=== PATIENT | female | born 1970 | race Caucasian/White ===

== ENCOUNTER 2017-04-03 04:53 | Inpatient (IN) | payer BC ==
--- NOTE | ~2017-04-03 | HP ---
History And Physical [place] [id number] [facility] [place]. [address] NAME: BLU RAMIREZ : 70 STATUS : DIS IN PAT#: [id number] AGE: 47 ADM/REG DATE : 04/03/17 MR#: [id number] REPORT SERV DATE: 05/16/17 DICTATED BY: LALY ZEPEDA JR. DATE: 04/03/17 REPORT STATUS : Draft TRANSCRIBED BY: MERI DATE: 04/03/17 DATE OF ADMISSION: 04/03/2017 REPORT TITLE: Cardiac Consultation REFERRING PHYSICIANS: 1. Papa Adorno M.D. 2. Yessy Jack M.D. BLOCK OPERATOR: None. HISTORY OF PRESENT ILLNESS: 47-year-old, obese, white female, diabetic with history of hypertension, end-stage renal disease, dialysis, old stroke. Yesterday, she had an AV fistula placed in her right upper extremity for subsequent dialysis. She went home and at approximately 2200 hours last night, had anterior chest pain with shortness of breath and pulmonary congestive changes. She was taken back to the emergency room and dialyzed on the way to the [facility]. She has had no chest pain today and is currently not having any discomfort. Her breathing seems to be improved. EKG shows loss of R-wave but no acute ST elevation. IVCD is prominent as well. Initial troponin already elevated at 5.38. BNP elevated at 697. Blood sugar 812. Potassium 4.4, BUN and creatinine 82 and 7.97, respectively. SOCIAL HISTORY: Supportive family. No current tobacco. No illicit drugs. FAMILY HISTORY: Positive for atherosclerotic cardiovascular disease. PAST MEDICAL HISTORY: Apparently, diastolic dysfunction with ejection fraction ? 40% in the past. 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 History of CVA. Denies history of heart attack. PHYSICAL EXAMINATION: VITAL SIGNS: Blood pressure 156/85, pulse is 93 and regular, respirations 18, and afebrile. HEENT: No xanthelasma. NECK: No JVD at 30 degrees, no thyromegaly, no carotid bruit. LUNGS: Clear to auscultation and percussion. COR: No thrills, heaves, normal S1, S2. No gallop. No rub. No murmur. ABD: Soft, nontender, no hepatosplenomegaly, no mass. EXT: Without edema or pulse deficit. MS: Back without spine or costovertebral angle tenderness. NEURO: Symmetric findings. DISCUSSION: Acute non-ST elevation myocardial infarction with IVCD, loss of R-wave, but no acute ST elevation on 12-lead EKG today. However, the patient had prolonged chest pain last night. None today. Troponin is already 5.38. Uncontrolled diabetes. Blood sugar 812. History And Physical [address] [address] NAME: BLU RAMIREZ ANN : 70 STATUS : DIS IN PAT#: [id number] AGE: 47 ADM/REG DATE : 04/03/17 MR#: [id number] REPORT SERV DATE: 05/16/17 DICTATED BY: LALY ZEPEDA JR. DATE: 04/03/17 REPORT STATUS : Draft TRANSCRIBED BY: MERI DATE: 04/03/17 BUN and creatinine 82 and 8.0, respectively. Potassium 6.8. Suggestions agree with current medications with the addition of intravenous heparin drip. Check portable echocardiogram and obtain serial cardiac enzymes and EKGs. 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 Otherwise would treat her medically including stabilization of the other medical problems. We will defer coronary angiography till her concurrent problems are optimized. Thank you for this consultation. RAF/MERI Laly Zepeda Jr., M.D. / [id number] CC: Lennox Castellanos M.D.
--- NOTE | ~2017-04-03 | OP ---
Record Of Operation [facility] [place]. [address] NAME: BLU DALE : 70 STATUS : DIS IN PAT#: [id number] AGE: 47 ADM/REG DATE : 04/03/17 MR#: [id number] REPORT SERV DATE: 06/07/17 DICTATED BY: DEV LEON DATE: 06/06/17 REPORT STATUS : Draft TRANSCRIBED BY: MODL DATE: 06/06/17 DATE OF PROCEDURE: 04/18/2017 SURGEON: Dev Leon MD MOBILE NURSE: Jammie Tabares. ANESTHESIOLOGIST: Ben Alcantara MD. PREOPERATIVE DIAGNOSES: 1. Eoj-DG-zzwfylq elevation myocardial infarction. 2. Three-vessel coronary artery disease. 3. End-stage renal disease. 4. Hypertension. 5. Hyperlipidemia. 6. Diabetes mellitus. 7. Morbid obesity. POSTOPERATIVE DIAGNOSES: 1. Sso-RY-fbcmqch elevation myocardial infarction. 2. Three-vessel coronary artery disease. 3. End-stage renal disease. 4. Hypertension. 5. Hyperlipidemia. 6. Diabetes mellitus. 7. Morbid obesity. OPERATION/PROCEDURE PERFORMED: 1. Median sternotomy. 2. Extracorporeal circulation. 3. Urgent coronary artery bypass grafting x5, KEAGAN to left anterior descending, reverse greater saphenous vein graft to D1, FLANNERY to obtuse marginal #1, reverse greater saphenous vein graft sequence to the posterior descending artery and posterior lateral branch. 4. LO. 5. Endoscopic vein harvest of bilateral leg. 6. Rigid external fixation of the sternum using Biomet SternaLock Damián. 7. Prevena dressing placement. TUBES AND DRAINS: A 24-Botswanan Tristan to left pleural spaces and a 32-Botswanan anterior mediastinal chest tube. Atrial and ventricular wires. POSTOPERATIVE CONDITION: Stable to CVICU. CROSS-CLAMP TIME: 95 minutes. Record Of Operation [facility] [address] [place]. [address] NAME: BLU DALE : 70 STATUS : DIS IN PAT#: [id number] AGE: 47 ADM/REG DATE : 04/03/17 MR#: [id number] REPORT SERV DATE: 06/07/17 DICTATED BY: DEV LEON DATE: 06/06/17 REPORT STATUS : Draft TRANSCRIBED BY: MODL DATE: 06/06/17 TOTAL CARDIOPULMONARY BYPASS TIME: 210. TRANSESOPHAGEAL ECHO: LVH. No AI, no MR, with mitral annular calcification. Post- procedure, there was preserved wall motion. INTRAOPERATIVE FINDINGS: The patient is not a redo candidate. Left vein was not usable. The right vein was small and thin, 3-4 mm. The KEAGAN was most likely felt to reach the LAD; however upon filling, appeared to have too much tension and was attached and used as a free graft off the degroot of the D2 graft. The patient had a very short sternum with short IMAs. Both IMAs were adequate size, 2 to 3 mm in size; however, they were extremely fragile. There were initially no anastomotic leaks from the WENDY. The patient had a small amount of thickening compared down to the right coronary, in the right graft and had the blood pressure increased per air. Both IMAs had significant leaks requiring recross clamp approximately 15 minutes in order to see them, to be able to manage them. DETAILS OF STERNAL PLATING: Two sternal X plates were placed on the body of the sternum with eight 12 mm screws and one 100-degree sternal plate was placed in the body of the manubrium with four 12 mm screws. CARDIOPULMONARY BYPASS GRAFTS: 1. Graft 1: Free KEAGAN to the LAD. This was 1.3 mm target. This graft was brought up the degroot of the saphenous vein graft to the 2nd diagonal. 2. Graft 2: Reverse greater saphenous vein graft to D2 is a 1.75 mm target. 3. Graft 3: FLANNERY to obtuse marginal #1, is 1.5 mm target. 4. Grafts 4 and 5: Reversed greater saphenous vein graft sequenced to the posterior descending artery and the posterolateral branch. These were both 1.75 mm targets. INDICATIONS FOR PROCEDURE: Ms. Dale is a 47-year-old female with end-stage renal disease, morbid obesity, diabetes, hypertension, hyperlipidemia, who came in with chest pain, was diagnosed with NSTEMI, underwent coronary revascularization which revealed significant three vessel disease. Risks, benefits, alternatives were discussed with the patient including but not limited to, bleeding, infection, stroke, , heart attack, need for future operations. All questions were answered. Her STS risk score was calculated and discussed with the patient. Mortality of less than 5%, total morbidity-mortality less than 20%. DETAILS OF PROCEDURE: The patient was brought into the operating room, placed supine on the operating room table. After satisfactory induction of general endotracheal anesthesia, she was prepped and draped in usual sterile fashion. Working simultaneously, endoscopic vein harvest was performed while bilateral WENDY harvest was performed and median sternotomy was performed. Sternal retractor was placed. Pleural reflection was taken down bilaterally. WENDY retractor was placed on the left. The internal mammary artery was harvested in a pedicle fashion. WENDY retractor was removed. It was placed to the right. The right internal mammary artery was harvested in a pedicle fashion. Systemic heparinization was achieved. The right graft was brought up, was detached from its inferior portion as was the left. Both were infiltrated with papaverine and placed in the upper chest. Sternal retractor was placed. Thymic tissue was opened in the midline. Pericardial well was Record Of Operation [address] [address] NAME: BLU DALE : 70 STATUS : DIS IN PAT#: [id number] AGE: 47 ADM/REG DATE : 04/03/17 MR#: [id number] REPORT SERV DATE: 06/07/17 DICTATED BY: DEV LEON DATE: 06/06/17 REPORT STATUS : Draft TRANSCRIBED BY: MERI DATE: 06/06/17 created. Ascending aortic cannulation was achieved. Dual-stage venous cannula was achieved. Antegrade cardioplegia tack was placed. Cardiopulmonary bypass was initiated after documentation of an adequate ACT. The targets were inspected. Both the appropriate bypass cross-clamp was brought up and the heart was arrested with cold antegrade cardioplegia. The bypass grafts were then performed as mentioned in the findings. The reverse greater saphenous vein graft was anastomosed to the PDA in a vgvc-am-qcfi fashion and PLV in an end-to-side fashion. It was then attached to the aorta after enlarging the aortotomy with a 4.5 mm punch. The left internal mammary artery was brought down through a wide V in the pericardium and anastomosed to obtuse marginal #1, has 1.5 mm target. Pedicles were attached to the heart in two places. There was excellent flow in the artery both pre and post bypass and in the graft itself. The bulldog was reapplied and reverse greater saphenous vein graft was anastomosed to D2 and then anastomosed to the aorta after enlarging the aortotomy with a 4.5 mm punch. Vein graft markers were placed on both of these. The KEAGAN was initially brought across the mediastinum and anastomosed to the left anterior descending. This was a very small target 1.3 mm. It was felt to be appropriate in length. De-airing maneuvers were performed. The cross-clamp was removed . Once the cross-clamp had been removed and the heart started beating, the internal mammary artery on the right was under significant tension. The decision was made to detach this and place it on the degroot of the D2 graft. This was done. The clip reported to left to the proximal portion of the KEAGAN. It was transected. It was cut to length, spatulated, and brought off the degroot of the D2 graft. The degroot was isolated between small bulldogs. Venotomy was performed and running continuous anastomosis was performed using 7-0 Prolene. The bulldogs were removed and there was excellent flow in the graft. The patient had initially come out sinus rhythm and then appeared to have some ST-segment changes. It was felt that had air down the right coronary. Blood pressure was raised and patient was found to have significant bleeding from both IMAs. Decision was made to recross the clamp. Cross-clamp was reapplied. The bleeding from the both IMAs was managed with simple interrupted 8-0 sutures. Cross-clamp was then removed. The patient again went to spontaneously in sinus rhythm, was able to be weaned from cardiopulmonary bypass. Protamine was administered. She was decannulated. There was excellent Doppler signals in both pre and post protamine. The pericardium was loosely reapproximated over the right ventricle and the ascending aorta. A 32-Botswanan chest tube was placed under the sternum. The sternum was reapproximated using stainless steel sternal wires. Clavipectoral flaps were raised after completion of the sternal closure with wires and sternal plates were placed to provide rigid external fixation as mentioned in the findings. The clavipectoral fascia was reapproximated using running #1 StrataFix. Subcutaneous tissues closed using running #1 StrataFix and the skin closed using 2-0 Quill. Prevena dressing was placed. She was transferred to CVICU in critical, stable condition. Liseth/EMRI Dev Leon MD / [id number] Record Of Operation [address] [address] NAME: BLU DALE : 70 STATUS : DIS IN [facility]#: [id number] AGE: 47 ADM/REG DATE : 04/03/17 MR#: [id number] REPORT SERV DATE: 06/07/17 DICTATED BY: DEV LEON PENN DATE: 06/06/17 REPORT STATUS : Draft TRANSCRIBED BY: MERI DATE: 06/06/17 CC: Lennox Mario M.D.
--- NOTE | ~2017-04-03 | DS ---
Discharge Summary [place] [id number] [place]. [address] NAME: BLU RAMIREZ ANN : 70 STATUS : DIS IN PAT#: [id number] AGE: 47 ADM/REG DATE : 04/03/17 MR#: [id number] REPORT SERV DATE: 05/17/17 DICTATED BY: DEV LEON DATE: 05/16/17 REPORT STATUS : Draft TRANSCRIBED BY: MERI DATE: 05/16/17 Data Collection from hospitalization DISCHARGE DIAGNOSES: 1. Kzj-NM-vissmoyln myocardial infarction. 2. Coronary artery disease. 3. End-stage renal disease, on hemodialysis. 4. Hypertension. 5. Depression and failure to thrive. 6. Diabetes mellitus type 2, insulin dependent. 7. Neuropathy. 8. Acute cerebrovascular accident with encephalopathy. 9. Malnutrition. 10.Generalized anxiety disorder with panic attacks. 11.Multiple sclerosis in the past. Remote therapy stopped in 2014. 12.Hyperkalemia. 13.Diastolic dysfunction. CONSULTATIONS: Dr. Papa Villegas, Dr. Neil Zepeda, Dr. Filemon Stevens, Dr. Saadia Shipley, Dr. Lico Phillips, Dr. Debbie Peterson. PROCEDURES PERFORMED: 1. Cardiac catheterization, 04/04/2017. 2. Echocardiogram, 04/04/2017. 3. Median sternotomy, extracorporeal circulation, urgent CABG x5, transesophageal echocardiogram, endoscopic vein harvest from both legs, ( ) external fixation of the sternum using ( ) SternaLock, Prevena dressing, 04/08/2017. 4. Electroencephalogram, 04/10/2017. 5. Carotid ultrasound. 6. Bilateral lower extremity vein mapping. PATHOLOGY: ( ). MEDICATIONS: Vitamin C 1000 mg twice daily, Ecotrin 325 mg daily, Lipitor 80 mg at bedtime, amiodarone HCl 200 mg twice daily, Coreg 25 mg twice daily, Pepcid 20 mg at bedtime, Neurontin 600 mg twice daily, NovoLog insulin sliding scale as directed, Levemir 15 units at bedtime, Keppra 500 mg twice daily, Senokot two tablets twice daily, Renvela 2400 mg before meals, thiamine 100 mg daily, Effexor XR 150 mg daily, Orazinc 220 mg daily, DuoNeb 3 mL every four hours as needed, Xanax 0.5 mg twice daily as needed, Percocet 5/325 one 3 times daily as needed. CONDITION AT DISCHARGE: Upon discharge, she did appear to be doing well and had no complaints. DISPOSITION: She was discharged home to continue a 2000 calorie ADA diet with activity as discussed. She was to follow up with Katharine Islas on 04/24/2017, follow up with myself on 05/14/2017, follow up with Dr. Neil Zepeda on 06/26/2017, follow up with cardiac rehab on 05/30/2017. Continue with outpatient dialysis as scheduled. Home healthcare was in place Discharge Summary [address] [place]. [address] NAME: BLU RAMIREZ ANN : 70 STATUS : DIS IN PAT#: [id number] AGE: 47 ADM/REG DATE : 04/03/17 MR#: [id number] REPORT SERV DATE: 05/17/17 DICTATED BY: DEV LEON DATE: 05/16/17 REPORT STATUS : Draft TRANSCRIBED BY: MERI DATE: 05/16/17 upon discharge. HOSPITAL COURSE: This 47-year-old obese female was diabetic with a history of hypertension, end-stage renal disease, dialysis as well as an old stroke. On 04/02/2017, she had an AV fistula placed in her right upper extremity for subsequent dialysis. She went home and at approximately 2200 hours had an anterior chest pain with shortness of breath and pulmonary congestion changes. She was taken back to the emergency room and dialyzed on the way to [facility]. She had no chest pain following this and had no discomfort noted. Her breathing did seem to be improved. She was admitted for further evaluation and treatment. Upon admission to the hospital, she had been placed on an n.p.o. diet. She was begun on BiPAP. She had been seen on the day of admission by Dr. Papa Adorno for Nephrology evaluation. He had noted the patient was hyperkalemic with a potassium of 6.5 as well as low sodium. However, her blood sugar was noted to be at 800. It was felt that this would correct with insulin and glucose correction. She was also to undergo dialysis. She was on a Saturday, Saturday, Saturday dialysis schedule, however not been getting her full treatment and was felt to be volume overloaded as her main complaint to begin with. She had also been seen on the day of admission by Dr. Neil Zepeda and he had recommended she be placed on IV heparin as well as receive aspirin, beta-johnnie, and nitroglycerin. He agreed with optimal dialysis and stabilization medically and she was to undergo an elective catheterization on this admit. Following the day of admission, she had no further chest pain noted. Her troponin had been at 5.4 and then stephane to 13.5, and then on 04/04/2017, it was back down to 7.4. Potassium was at 4.3. She did undergo an echocardiogram. She was continued on supportive care. She had also undergone a cardiac catheterization. She tolerated this well and was transferred to the recovery room. Secondary to the findings of the catheterization, she was then seen by Ben Ross and he discussed the risks and benefits of surgery with the patient and her , as she was in need of a 3-vessel bypass. She was agreeable to proceed. She did continue with hemodialysis during her hospitalization. On 04/05/2017, she did appear to be doing well and was not feeling anxious and tearful. She had no complaints of chest pain or shortness of breath, and had no new issues or events noted. She did undergo a carotid ultrasound as well as bilateral vein mapping. She had tolerated both procedures well. On 04/06/2017, she was in sinus rhythm and had no complaints of chest pain or shortness of breath. She continued to do well and was awaiting surgery. She did remain in stable condition throughout the next few days and had continued to do well. She was then taken to the operating room on 04/08/2017, where she did undergo the above bypass procedure. She tolerated this well and was transferred to the recovery room. On postop day #1, she was awake and alert, was appropriately responsive. She had been extubated and did appear to be doing well postoperatively. She was continued on supportive care. On postop day #2, she was afebrile and her vital signs had remained stable. She was however noted to have an altered mental status. Reglan was discontinued, and sedation was being held secondary to her altered mental status. She was noted to have had a prior CVA. She was still blinking to threat. She was awake and her eyes were open and she was following movement about the room. She had been seen by Dr. Peterson for Neurology evaluation and an electroencephalogram was recommended. On 04/10/2017, she did undergo the above electroencephalogram. She was noted to have been minimally responsive. She was afebrile and her vital signs were stable. She had also been seen by Dr. Filemon Stevens and he had recommended that she continue with BiPAP and close monitoring secondary to her mental status. She had been placed on Keppra at 1000 mg IV every 12 hours by Neurology. On Discharge Summary [place] [address] [place]. [address] NAME: BLU RAMIREZ ANN : 70 STATUS : DIS IN PAT#: [id number] AGE: 47 ADM/REG DATE : 04/03/17 MR#: [id number] REPORT SERV DATE: 05/17/17 DICTATED BY: DEV LEON DATE: 05/16/17 REPORT STATUS : Draft TRANSCRIBED BY: MERI DATE: 05/16/17 04/11/2017, the patient was awake and would open her eyes and moan, however was aphasic. She did undergo an MRI. She was continued on supportive care. Her WBCs were noted to be at 34 K. On 04/12/2017, she was on nasal cannula oxygen at 15 L. Her chest x-ray had revealed mild left base atelectasis and effusion and right upper lobe atelectasis. She was resumed on her home antihypertensive of carvedilol and it was felt that she may need additional medication if she was not improved after dialysis. She had also been resumed on IV insulin for hyperglycemia. She was continued on supportive care. She was felt to have an acute small left ( ) CVA. Her blood cultures were done and were noted to have been negative. On 04/13/2017, she did remain in stable condition and had no new complaints noted. She had been continued on her hemodialysis. Her WBCs were noted to be decreasing. She was evaluated by Physical Therapy. On 04/14/2017, she was afebrile and her vital signs were stable. Her labs were being observed and she had been continued on supportive care. She did remain in stable condition and had continued to do well and discharge planning was begun. She did remain in stable condition throughout the next few days and was then discharged on 04/17/2017 with the above instructions. Information collected by: Bran [email or web address]. I submit the above information as my discharge summary. RW/MODL Dev Leon MD / [id number] CC: Lennox Mario M.D. Joseph Watlington, M.D. James Hoback Jr., M.D. EMILY ELSWICK, PA-C
--- NOTE | ~2017-04-03 | CN ---
Consultation Report [facility] [address] [place]. [address] NAME: BLU RAMIREZ : 70 STATUS : DEP [facility]#: [id number] AGE: 47 ADM/REG DATE : 04/03/17 MR#: [id number] REPORT SERV DATE: 04/04/17 DICTATED BY: PAPA LATHAM DATE: 04/03/17 REPORT STATUS : Draft TRANSCRIBED BY: MODL DATE: 04/03/17 NEPHROLOGY CONSULTATION DATE OF CONSULTATION: HISTORY OF PRESENT ILLNESS: Ms. Ramirez is a 47-year-old white female with end-stage renal disease, on Saturday, Saturday and Saturday at [facility], who presented to the emergency room today with complaints of shortness of breath and found to have hyperglycemia with blood sugar over 800, positive troponin of 5.3, and hyperkalemia with a potassium of 6.8. She yesterday came to the hospital and had an AV fistula created in the right upper arm by Dr. Castro and was discharged home. On the way home, stopped and got some [employer] chicken, but was offered normal regimen because she was n.p.o. most of the day for her surgery. She has not been staying for a full treatment at the clinics, and she has significant steal syndrome on the left arm with neuropathic pain following an AV fistula creation on her left forearm in the past. She has had end-stage renal disease now, dialyzing through a right IJ PermCath with attempt at a left forearm AV fistula with neuropathic pain developed and had to be ligated, now maturing right brachiocephalic AV fistula placed by Dr. Castro yesterday here at [facility]. She also suffers from hypertension, diabetes mellitus type 2, chronic anemia, obesity, diastolic dysfunction with ejection fraction of 40%, previous NE, previous CVA with heavy atherosclerotic cardiovascular disease burden, depression and was treated for multiple sclerosis through 2015 and no treatment since then. SOCIAL HISTORY: No tobacco. No drugs. No alcohol. She is disabled now, and lives with her . FAMILY HISTORY: Positive for heart disease, lung cancer, hypertension, and diabetes mellitus. REVIEW OF SYSTEMS: Dialyzed Saturday, but only for partial treatment as she was complaining of left hand pain despite being on narcotics. Came yesterday for her AV fistula creation by Dr. Castro. On her way home, stopped and had some [employer] chicken, but says she did not have high blood sugar at that time. Blood sugar was in the 100s after surgery. She became quite short of breath last night at home and developed some chest tightness over her entire chest wall, after which it radiated to both arms. When it was not any better and she became short of breath, was brought to the emergency room. The pain is described as sharp and constant, associated with shortness of breath and no diaphoresis. No fever or chills, no dysuria, and no history of upper respiratory infection or other signs of infection. ALLERGIES: STADOL AND CODEINE. HOME MEDICATIONS: Tylenol, Xanax, aspirin, Lipitor, Coreg, Neurontin, Apresoline, NovoLog and Levemir insulins, Percocet, Renvela, Effexor and a diuretic, do not know the name. PHYSICAL EXAMINATION: Consultation Report [address] [place]. [address] NAME: YOANA RAMIREZLillie TUBBS : 70 STATUS : DEP PAT#: [id number] AGE: 47 ADM/REG DATE : 04/03/17 MR#: [id number] REPORT SERV DATE: 04/04/17 DICTATED BY: PAPA LATHAM DATE: 04/03/17 REPORT STATUS : Draft TRANSCRIBED BY: MERI DATE: 04/03/17 VITAL SIGNS: Blood pressure is 123/68, heart rate of 87, respirations 18, temperature afebrile. GENERAL: Seen on hemodialysis via right IJ PermCath. She arouses easily from sleep. On BiPAP initially, was taken off BiPAP and did well on O2 by nasal cannula. Right IJ PermCath functioning well. She has a right upper arm brachiocephalic AV fistula with recent sutures with good bruit and thrill. Left arm does not have an AV fistula anymore. Her blood pressure cuff is in her left arm. LUNGS: Show decreased breath sounds bilaterally. CARDIOVASCULAR: Without murmur, gallops, or rubs. ABDOMEN: Soft and nontender. Bowel sounds are present. EXTREMITIES: 2+ edema bilaterally in lower extremities. NEUROLOGIC: Nonfocal neurological exam, but did not ambulate the patient. The patient was a bit sleepy, hard to understand and very poor historian. Her filled in the details. LABORATORY DATA: Shows a blood gas with pH of 7.28, pCO2 of 38, pO2 of 61 on room air on arrival to the emergency room with an O2 saturation of 86%. Sodium is 124; potassium 6.8; chloride 90; CO2 of 22 with a BUN of 82; creatinine is 7.97; blood sugar was 812, repeat 400 on dialysis; calcium 8.5; magnesium 2.6. Troponin is 5.38. White count was 16,000; hemoglobin 10; hematocrit 34; platelet count 205,000. INR 1.1. EKG showed some large left atrium, normal sinus rhythm, and ischemic changes diffusely. ASSESSMENT: 1. Acute myocardial infarction, leading to shortness of breath. Cardiology has been consulted to see after dialysis. 2. Hyperkalemia, potassium of 6.5, accompanying low sodium, but her blood sugar was 800. These should correct with insulin and glucose correction. We will recheck after dialysis today. 3. End-stage renal disease, on Saturday, Saturday and Saturday dialysis and not been getting her full treatments, and probably volume overload is her main complaint to begin with. 4. Hypertension. 5. Multiple sclerosis in the past, remote therapy, stopped in 2014. 6. Diastolic dysfunction by echo in the past. 7. See past medical history. PLAN: Cardiology to evaluate, possible cardiac cath. Hemodialysis urgently, being on dialysis as I dictate. Talked with the , he is aware of above, and we will give our hospital pack from the clinic as soon as they are available. VALDO/MERI Papa Latham M.D. Consultation Report [address] [place]. [address] NAME: BLU RAMIREZ ANN : 70 STATUS : DEP [facility]#: [id number] AGE: 47 ADM/REG DATE : 04/03/17 MR#: [id number] REPORT SERV DATE: 04/04/17 DICTATED BY: PAPA LATHAM DATE: 04/03/17 REPORT STATUS : Draft TRANSCRIBED BY: MERI DATE: 04/03/17 / [id number] CC: Lennox Mario
[~2017-04-03 04:53] MED LIST: ACET500CAP PO; AFRIN15 NAS; APRES10B PO; APRES50 PO; ASAB PO; CARDU2 PO; CEFT2 PO; CLARIT10 PO; COREG12 PO; COREG25 PO; DSS PO; DURICEF PO; EFFEX37.5 PO; FLEX PO; HUMULIN R1 ML SC; L80 PO; LEVEMIR SC; LIPITOR40 PO; MIRALAXPKT PO; NEPHRO PO; NEUR100 PO; NEUR300 PO; NEUR600 PO; NORV10 PO; NORV5 PO; NOVOLOG SC; PCET PO; PRIN5 PO; PROTONIX PO; RENVELA800 MG PO; SEVE800T PO; SODBICAR10 PO; ULTRAM50 PO; X5 PO; XANAX XR1 MG PO; XANAX1 MG PO; [UNRECOGNIZED DRUG - OTHER] PO
[2017-04-03 05:21] LABS: HCO3 (ACTUAL BICARBONATE) 17.1 MEQ/L (23-27); HEMOBLOGIN CONTENT 10.8 G/DL (12-16); INSTRUMENT SERIAL # 8087; METHEMOGLOBIN 0.3 % (0-3); O2 CONTENT 12.9 VOL% (18-24); PCO2 (CO2 TENSION) 38 MMHG (35-45); PO2 (O2 TENSION) 61 MMHG (79-93); SAMPLE Arterial; pH 7.28 (7.37-7.43)
[2017-04-03 06:00] LABS: INTERNATIONAL NORMAL RATI 1.1 UNITS (-); PARTIAL THROMBO TIME 28.6 SEC (22.5-37.2)
[2017-04-03 06:01] LABS: BASOPHILS 0.2 %; BASOPHILS ABSOLUTE 0.03 10/3/uL (0.0-0.16); EOSINOPHILS 0 %; ER CBC TAT 0 Hrs 13 Mins; HEMATOCRIT 34.7 % (36.0-48.0); HEMOGLOBIN 10.9 g/dL (12.0-16.0); IMMATURE GRANULOCYTES 0.3 %; IMMATURE GRANULOCYTES ABSOLUTE 0.05 10/3/uL (0.0-0.11); LYMPHOCYTES 10.1 %; LYMPHOCYTES ABSOLUTE 1.62 10/3/uL (0.67-4.30); MEAN CORPUS HGB CONC 31.4 g/dL (32.0-36.0); MEAN CORPUSCULAR HEMOGLOB 31.2 pg (26.0-34.0); MEAN PLATELET VOLUME 11.7 fL (9.2-13.0); MONOCYTES 2.3 %; MONOCYTES ABSOLUTE 0.37 10/3/uL (0.21-1.20); NEUTROPHILS 87.1 %; NEUTROPHILS ABSOLUTE 13.97 10/3/uL (2.02-8.40); PLATELET COUNT 205 10/3/uL (150-400); RBC DISTRIBUTION WIDTH 15.8 % (12.0-16.0); RED CELL COUNT 3.49 10/6/uL (4.0-5.6)
[2017-04-03 06:02] LABS: MANUAL DIFF NO %; MEAN CORPUSCULAR VOLUME 99.4 fL (80-100)
[2017-04-03 07:06] LABS: BUN (BLOOD UREA NITROGEN) 82 MG/DL (6-23); CALCIUM, SERUM 8.5 MG/DL (8.5-10.4); CHEST PAIN PROFILE TAT 0 Hrs 20 Mins; CHLORIDE, SERUM 90 MMOL/L (96-112); CO2 (CARBON DIOXIDE) 22 MMOL/L (24-34); CREATININE 7.97 MG/DL (0.55-1.02); GFR AFRICAN AMERICAN 6 ML/MIN (>=60); GFR NON AFRICAN AMERICAN 5 ML/MIN (>=60); GLUCOSE, SERUM 812 MG/DL (60-99); POTASSIUM, SERUM 6.8 MMOL/L (3.5-5.3); SODIUM, SERUM 124 MMOL/L (135-148); TROPONIN I 5.38 NG/ML (<0.05)
[2017-04-03] MEDS ORDERED: ASAB PO (07:36)
[2017-04-17] MEDS ORDERED: EFFEXOR XR150 MG PO (14:30)
[2017-04-17] MEDS ORDERED: NORCO1 TA1 PO (14:30)
[2017-04-17] MEDS ORDERED: CORDARONE PO (14:30)
[2017-04-17] MEDS ORDERED: KEPPRA500 PO (14:31)
[2017-04-17] MEDS ORDERED: ASA5GR PO (14:31)
[2017-04-17] MEDS ORDERED: DUONEB INH (14:31)
[2017-04-17] MEDS ORDERED: VITC500 PO (14:32)
[2017-04-17] MEDS ORDERED: PEP20 PO (14:33)
[2017-04-17] MEDS ORDERED: ZINC220C PO (14:34)
[2017-04-17] MEDS ORDERED: B1100 PO (14:34)
[2017-06-03] MEDS ORDERED: SUPER B COMP PO (19:41)
[2017-06-03] MEDS ORDERED: PR25 PO (20:03)
== END 2017-04-17 17:40 | disposition home health service (06) | DRG 233 ==
LOC: ER 04:53 → ADMMEM 07:54
PROVIDERS: Nurse Practitioner Acute Care; Specialist
PROC: 5A1D60Z (ICD-10-PCS; principal; 2017-04-03)
PROC: 02100Z9 Bypass Coronary Artery, One Artery from Left Internal Mammary, Open Approach (ICD-10-PCS; 2017-04-03)
PROC: 5A09357 Assistance with Respiratory Ventilation, Less than 24 Consecutive Hours, Continuous Positive Airway Pressure (ICD-10-PCS; 2017-04-03)
PROC: 5A1D60Z (ICD-10-PCS; 2017-04-03)
PROC: 4A023N7 Measurement of Cardiac Sampling and Pressure, Left Heart, Percutaneous Approach (ICD-10-PCS; 2017-04-04)
PROC: 021209W Bypass Coronary Artery, Three Arteries from Aorta with Autologous Venous Tissue, Open Approach (ICD-10-PCS; 2017-04-04)
PROC: B2111ZZ Fluoroscopy of Multiple Coronary Arteries using Low Osmolar Contrast (ICD-10-PCS; 2017-04-04)
PROC: B2151ZZ Fluoroscopy of Left Heart using Low Osmolar Contrast (ICD-10-PCS; 2017-04-04)
PROC: 02100Z8 Bypass Coronary Artery, One Artery from Right Internal Mammary, Open Approach (ICD-10-PCS; 2017-04-04)
PROC: 06BQ4ZZ Excision of Left Saphenous Vein, Percutaneous Endoscopic Approach (ICD-10-PCS; 2017-04-08)
PROC: 06BP4ZZ Excision of Right Saphenous Vein, Percutaneous Endoscopic Approach (ICD-10-PCS; 2017-04-08)
PROC: 5A1221Z Performance of Cardiac Output, Continuous (ICD-10-PCS; 2017-04-08)
PROC: 031709D Bypass Right Brachial Artery to Upper Arm Vein with Autologous Venous Tissue, Open Approach (ICD-10-PCS; 2017-04-08)
PROC: B246ZZ4 Ultrasonography of Right and Left Heart, Transesophageal (ICD-10-PCS; 2017-04-08)
PROC: 05BD0ZZ Excision of Right Cephalic Vein, Open Approach (ICD-10-PCS; 2017-04-08)
PROC: 30233R1 Transfusion of Nonautologous Platelets into Peripheral Vein, Percutaneous Approach (ICD-10-PCS; 2017-04-08)
PROC: 30233N1 Transfusion of Nonautologous Red Blood Cells into Peripheral Vein, Percutaneous Approach (ICD-10-PCS; 2017-04-08)
DX: I97.191 Other postprocedural cardiac functional disturbances following other surgery (principal); I21.4 Non-ST elevation (NSTEMI) myocardial infarction; I63.9 Cerebral infarction, unspecified; N18.6 End stage renal disease; J96.02 Acute respiratory failure with hypercapnia; J96.01 Acute respiratory failure with hypoxia; G93.40 Encephalopathy, unspecified; J98.11 Atelectasis; I97.820 Postprocedural cerebrovascular infarction following cardiac surgery; I13.2 Hypertensive heart and chronic kidney disease with heart failure and with stage 5 chronic kidney disease, or end stage renal disease; I50.32 Chronic diastolic (congestive) heart failure; E46 Unspecified protein-calorie malnutrition; E87.5 Hyperkalemia; E11.65 Type 2 diabetes mellitus with hyperglycemia; F32.9 Major depressive disorder, single episode, unspecified; D64.9 Anemia, unspecified; I25.2 Old myocardial infarction; Z86.73 Personal history of transient ischemic attack (TIA), and cerebral infarction without residual deficits; Z88.5 Allergy status to narcotic agent; Z88.8 Allergy status to other drugs, medicaments and biological substances; Z79.899 Other long term (current) drug therapy; Z79.82 Long term (current) use of aspirin; Z79.4 Long term (current) use of insulin; E11.22 Type 2 diabetes mellitus with diabetic chronic kidney disease; Z99.2 Dependence on renal dialysis; Z82.49 Family history of ischemic heart disease and other diseases of the circulatory system; Z79.84 Long term (current) use of oral hypoglycemic drugs; I25.10 Atherosclerotic heart disease of native coronary artery without angina pectoris; E11.21 Type 2 diabetes mellitus with diabetic nephropathy; G35 Multiple sclerosis; F41.1 Generalized anxiety disorder; Z95.828 Presence of other vascular implants and grafts
CPT/HCPCS: 31720; 36415; 36600; 36821; 70450; 70551; 71010; 71020; 71250; 71275; 74000; 80048; 80053; 80061; 80069; 80076; 81001; 82140; 82330; 82550; 82553; 82803; 82805; 82947; 82962; 83036; 83540; 83550; 83735; 83880; 84100; 84132; 84295; 84439; 84443; 84481; 84484; 84703; 85014; 85018; 85025; 85347; 85384; 85576; 85610; 85730; 86850; 86900; 86901; 86920; 87040; 87086; 87641; 88305; 93005; 93312; 93320; 93325; 93458; 93880; 94002; 94640; 94660; 94770; 95816; 95819; 96374; 96375; 97112-GO; 97163-GP; 97164-GP; 97166-GO; 97535-GO; 99152; 99291; A9270-GY; C1713; C1769; C1894; C8929; G0257; G0365; J0360; J0690; J0885; J1644; J1953; J2150; J2250; J2370; J2405; J2440; J2550; J2720; J2765; J2930; J3010; J3370; J3411; J3475; J3480; P9016; P9035; P9045; P9047; Q9957; Q9967

== ENCOUNTER 2017-04-19 23:22 | Inpatient (IN) | payer BC ==
--- NOTE | ~2017-04-19 | CN ---
Consultation Report [facility] [address] [place]. [address] NAME: BLU RAMIREZ : 70 STATUS : ADM IN PAT#: [id number] AGE: 47 ADM/REG DATE : 04/20/17 MR#: [id number] REPORT SERV DATE: 04/20/17 DICTATED BY: KELLY STEIN DATE: 04/20/17 REPORT STATUS : Draft TRANSCRIBED BY: MERI DATE: 04/20/17 CARDIOLOGY CONSULT DATE OF CONSULTATION: REASON FOR REFERRAL: Chest pain, elevated troponin, and shortness of breath post recent open heart surgery. HISTORY OF PRESENT ILLNESS: This is a pleasant 47-year-old white female with very complex past medical history, well known to Dr. Zepeda. Reportedly, she had been discharged home three days ago from [facility]. She has worsening dyspnea since discharge at home and inability to walk across the room without shortness of breath. She was not on oxygen at home. She developed also two days substernal chest pressure, moderate in severity. She was admitted to Nephrology Service. She was dialyzed yesterday and today also. She was found to have fluid overload. She has leukocytosis with white blood cell count [id number], with left shift. The patient reported some subjective fever and chills at home, but she is not febrile here. Her BNP is elevated up to 178. Her troponin is elevated to 1.6. Of note, it had been 0.6 at the time of open heart surgery on 04/08/2017. The patient is a poor historian and has very slow speech, but reported back to baseline. Of note, she suffered a CVA which has been confirmed by MRI on 04/11/2017 postoperatively. She reportedly has not had any mobility issue, but has some slow speech. Dr. Phillips was involved in her care recently, and she had severe depression. She denied any lower extremity edema, palpitations, or syncope. She has been started on 4 L of oxygen. Of note, she has some respiratory hypercapnic failure during the hospitalization also. She remains hemodynamically stable. She just returned from hemodialysis. REVIEW OF SYSTEMS: The rest of her review of systems is negative. PAST MEDICAL HISTORY: 1. Coronary artery disease, multivessel with status post urgent five-vessel CABG by Dr. Pugh on 04/08/2017. 2. She has preserved systolic function with EF 55% without any regional wall motion abnormalities on 04/04/2017. 3. Severe depression and anxiety. 4. Status post postoperative CVA confirmed by MRI on 04/11/2017. 5. Hypercapnic respiratory failure with negative CT for pulmonary embolism, 04/09/2017. 6. End-stage renal disease, on hemodialysis for few months. 7. Diabetes mellitus. 8. Poor mobility. 9. Failure to thrive. SOCIAL HISTORY: The patient is . She ambulates without difficulties, but had some Consultation Report [address] [place]. [address] NAME: BLU RAMIREZ ANN : 70 STATUS : ADM IN [facility]#: [id number] AGE: 47 ADM/REG DATE : 04/20/17 MR#: [id number] REPORT SERV DATE: 04/20/17 DICTATED BY: KELLY STEIN DATE: 04/20/17 REPORT STATUS : Draft TRANSCRIBED BY: MERI DATE: 04/20/17 difficulties since she was discharged from the hospital due to the general weakness. Denies smoking, drinking alcohol, or using street drugs. FAMILY HISTORY: Negative for sudden cardiac or premature coronary artery disease in the family. HOME MEDICATIONS: Albuterol, Xanax 0.5 mg p.r.n., amiodarone 200 mg twice a day, vitamin C, aspirin 325 mg once a day, Lipitor 80 mg once a day, Coreg 25 mg twice a day, Pepcid 20 mg once a day, Neurontin 600 mg twice a day, hydrocodone every 4 hours as needed, insulin, Keppra 500 mg twice a day, thiamine, Effexor 150 mg once a day. PHYSICAL EXAMINATION: GENERAL: No acute distress. The patient has slow speech, but answers questions appropriately. VITAL SIGNS: Blood pressure 182/84, heart rate 82 and regular. HEENT: Pupils reactive to light and accommodation. Moist mucosa membrane. NECK: No JVD. Normal carotid upstroke. No carotid bruits. LUNGS: Decreased breath sounds bibasilarly, particularly at the left base. No crackles. COR: Normal S1, S2. No S3 or S4. No significant rub or murmurs. ABDOMEN: Obese, distended, and nontender. EXTREMITIES: Lower extremity, trace edema around the ankles with decreased pedal pulses bilaterally. SKIN: Warm with normal turgor. MS: No kyphosis. NEURO/PSY: Alert and oriented. Nonfocal. DATA: CBC remarkable for hemoglobin 10.5, leukocytosis 17,000 with left shift. BNP 878. Troponin 1.69. Creatinine 4.1, BUN 27. Chest x-ray, left basilar infiltrate. Electrocardiogram revealed normal sinus rhythm, 83 beats per minute. Poor R-wave progression in anterior leads, intraventricular conduction delay. ASSESSMENT AND PLAN: 1. Fluid overload. End-stage renal disease, on hemodialysis. 2. Hypoxic respiratory failure of multifactorial etiology. 3. Leukocytosis with reported history of fevers and chills at home concerning for infection with a left basilar infiltrate. 4. Status post recent CABG. 5. Elevated troponin, likely demand ischemia with continuous chest pain, possible type 2 myocardial infarction. 6. Depression. 7. History of recent cerebrovascular accident. The patient has had several medical problems. She is hemodynamically stable now. We will start her on intravenous heparin. Continue aspirin, Coreg, and amiodarone. She is in sinus rhythm. We will follow cardiac enzymes closely. In case if this continues to go up, she may require coronary arteriogram to reassess coronary anatomy and bypass patency. She had a Consultation Report [address] [address] NAME: BLU RAMIREZ ANN : 70 STATUS : ADM IN [facility]#: [id number] AGE: 47 ADM/REG DATE : 04/20/17 MR#: [id number] REPORT SERV DATE: 04/20/17 DICTATED BY: KELLY STEIN DATE: 04/20/17 REPORT STATUS : Draft TRANSCRIBED BY: MERI DATE: 04/20/17 recent echocardiogram which revealed preserved systolic function without any regional wall motion abnormalities. Leukocytosis is unclear, but may represent infection and we will leave it to the primary service or to hospitalist. We will follow the patient with you. Thank you very much for the consult. WILLI/MERI Kelly Stein M.D. / [id number] CC: Papa Adorno M.D. Jag Baxter M.D.
--- NOTE | ~2017-04-19 | HP ---
History And Physical [address] [place]. [address] NAME: BLU RAMIREZ : 70 STATUS : ADM IN [facility]#: [id number] AGE: 47 ADM/REG DATE : 04/20/17 MR#: [id number] REPORT SERV DATE: 04/20/17 DICTATED BY: PAPA LATHAM DATE: 04/20/17 REPORT STATUS : Draft TRANSCRIBED BY: MODLyudmila DATE: 04/20/17 DATE OF ADMISSION: 04/20/2017 HISTORY OF PRESENT ILLNESS: Ms. Ramirez is a 47-year-old white female, recently in the hospital for coronary artery bypass grafting after myocardial infarction, went home on , 04/17/2017, only to return on 04/19/2017, complaining of some chest pain, which developed after dialysis at [facility]. She went home after dialysis, felt well, but then developed some chest pain of sudden onset, nausea, and vomiting. No diaphoresis. No fever. No diarrhea. Mild shortness of breath which became more progressive and finally brought to the hospital for the volume overload, hypoxia, and what appears to be flash pulmonary edema. Responded well to conservative therapy. Dialyzed this morning and got three more kg off her dry weight. Her dry weight will be adjusted, and with positive troponins, we are reconsulting Cardiology to see again. PAST MEDICAL HISTORY: Atherosclerotic cardiovascular disease, recent coronary bypass grafting on 04/08/[address] Pugh, chronic hypertension, diabetes mellitus type 2, anemia, diastolic dysfunctions, history of CVA in the past, chronic depression, history of multiple sclerosis treated through 2014, but no treatment since then needed. SOCIAL HISTORY: No alcohol, no tobacco, no drugs. . FAMILY HISTORY: Positive for heart disease, lung cancer, hypertension, and diabetes. ALLERGIES: SHE IS ALLERGIC TO REGLAN, CODEINE, AND STADOL. HOME MEDICATIONS: DuoNebs inhaler, Xanax, Cordarone, vitamin C, Rad aspirin, Lipitor, Coreg, Pepcid, Neurontin, [place] 5/325, NovoLog sliding scale along with Levemir 15 units at bedtime, Keppra, Renvela, thiamine, Effexor, and zinc sulfate. PHYSICAL EXAMINATION: VITAL SIGNS: Reveals a blood pressure of 149/92, heart rate 86, saturation 100% on 2 L, respirations 14 to 16, and afebrile. GENERAL: Alert, cooperative, feeling well on dialysis after 3 kg ultrafiltration today. HEENT: Examination unremarkable. LUNGS: Clear. Sternotomy site clean and dry. CARDIOVASCULAR: Without rub. ABDOMEN: Soft, benign. Bowel sounds are present. EXTREMITIES: No edema. NEUROLOGIC: Intact. Flat affect. SKIN: No skin rash. LYMPHATICS: No lymphadenopathy. EXTREMITIES: No joint deformities with good range of motion. LABORATORY DATA: Lab shows sodium 138.4, potassium 3.8, chloride 98, CO2 of 29 with a BUN of 27, creatinine 4.1, blood sugar 241. Calcium 8.2, albumin 2.9, troponin was elevated to 1.69. White count 17,000, hemoglobin 10, hematocrit 32, platelet count 249,000. Beta History And Physical [address] [address] NAME: BLU RAMIREZ : 70 STATUS : ADM IN [facility]#: [id number] AGE: 47 ADM/REG DATE : 04/20/17 MR#: [id number] REPORT SERV DATE: 04/20/17 DICTATED BY: PAPA LATHAM DATE: 04/20/17 REPORT STATUS : Draft TRANSCRIBED BY: MODL DATE: 04/20/17 natriuretic peptide is 878. ASSESSMENT: 1. Flash pulmonary edema. Suspect cardiac with positive troponins, but cannot rule out stress-induced troponin leak, although with recent coronary artery disease, I have asked [facility] to see. 2. Recent coronary artery bypass grafting by Dr. Pugh on 04/08/2017. 3. Diabetes mellitus type 2. 4. End-stage renal disease, on hemodialysis on Saturday, Saturday, and Saturday. Last dialysis at [facility] on 04/19/2017. 5. Hypertension. 6. Obesity. 7. History of multiple sclerosis in the past. PLAN: We will ask Cardiology to see again. Ultrafiltration and hemodialysis have made her much more comfortable. We will adjust her dry weight, and we will follow closely in [facility]. VALDO/MERI Papa Latham M.D. / [id number] CC: Lenonx Lane M.D.
--- NOTE | ~2017-04-19 | DS ---
Discharge Summary [facility] [address] [place]. [address] NAME: BLU RAMIREZ : 70 STATUS : DIS IN PAT#: [id number] AGE: 47 ADM/REG DATE : 04/20/17 MR#: [id number] REPORT SERV DATE: 05/09/17 DICTATED BY: MIKE MORRISON DATE: 05/08/17 REPORT STATUS : Draft TRANSCRIBED BY: MERI DATE: 05/08/17 Data Collection from hospitalization DISCHARGE DIAGNOSES: 1. Left pleural effusion. 2. Acute/chronic diastolic congestive heart failure. 3. End-stage renal disease. 4. Chronic pain. 5. Coronary artery disease status post coronary artery bypass. 6. Chronic nausea and vomiting. 7. Hypertension. 8. Type 2 diabetes mellitus. 9. History of cerebrovascular accident. 10.Chronic depression. 11.History of multiple sclerosis. CONSULTATIONS: Dr. Ben Flowers and Dr. Marley Wolff. PROCEDURES PERFORMED: 1. CT scan of the chest without contrast, 04/22/2017. 2. Ultrasound-guided thoracentesis, 04/23/2017. 3. CT scan of the brain without contrast, 04/24/2017. MEDICATIONS: Rad Aspirin 325 mg every morning, Lipitor 80 mg at bedtime, Cordarone 200 mg twice a day, Coreg 25 mg twice a day, Pepcid 20 mg every morning, Neurontin 600 mg twice a day, Keppra 500 mg twice a day, NovoLog injection insulin as instructed, Prinivil 10 mg at bedtime, Florastor capsules one capsule twice a day, Renvela 2400 mg three times a day before meals, thiamine 100 mg every morning, Effexor XR 150 mg every morning, Orazinc 220 mg every morning, Deltasone as instructed, Levemir 16 units subcutaneously twice a day, Tylenol 650 mg orally or rectally as needed, Xanax 0.5 mg twice a day as needed, glucose tablets three to six tablets as needed, morphine 5-10 mg every six hours as needed, nitroglycerin 0.4 mg sublingually as needed, Zofran one to two tablets every six hours as needed, Catapres 0.1 mg every six hours as needed and as instructed, Proventil 3 mL via inhaler every four hours while awake as needed, DuoNeb 3 mL via inhaler four times a day as instructed, vitamin C 1000 mg twice a day. CONDITION AT DISCHARGE: Stable. DISPOSITION: The patient was discharged to [facility] on a renal diet with activities as instructed. HOSPITAL COURSE: This is a 47-year-old female, who had recently been in the hospital for coronary artery bypass grafting after a myocardial infarction. She went home on 04/17/2017 and returned on 04/19/2017, complaining of some chest pain, which developed after dialysis. She went home after dialysis and felt well, but then developed some chest pain of sudden onset nausea and vomiting. She had no diaphoresis, fever, or diarrhea. She had mild shortness of breath, which became more progressive and she was finally brought to the hospital for the volume overload, hypoxia, and what appeared to be flash pulmonary edema. Discharge Summary [address] [address] NAME: BLU RAMIREZ ANN : 70 STATUS : DIS IN PAT#: [id number] AGE: 47 ADM/REG DATE : 04/20/17 MR#: [id number] REPORT SERV DATE: 05/09/17 DICTATED BY: MIKE MORRISON DATE: 05/08/17 REPORT STATUS : Draft TRANSCRIBED BY: MERI DATE: 05/08/17 She responded well to conservative therapy. White count was 17,000. She was admitted to the hospital at this time for further evaluation and treatment. Upon admission, ultrafiltration and hemodialysis made her much more comfortable. She was felt to have flash pulmonary edema. Her creatinine was 4.1. She was seen by Dr. Marley Wolff regarding chest pain, elevated troponin, and shortness of breath. She had recently had open heart surgery. Her white count was 17,000 with a left shift. Her troponin was elevated at 1.6. It had been 0.6 at the time of her open heart surgery on 04/08/2017. She had suffered a CVA, which was confirmed by an MRI on 04/11/2017 postoperatively. She had been started on 4 L of oxygen. She does have severe depression. She was hemodynamically stable at this time. She was started on intravenous heparin. Aspirin, Coreg, and amiodarone were continued. She was in a sinus rhythm. We will closely follow cardiac enzymes. The following day, her shortness of breath was much better. She had no chest pain. White count was 20.9. On 04/22/2017, she had a flat affect. She was depressed. A CT scan of the chest without contrast had been performed. She was evaluated by Occupational Therapy. The patient had a left pleural effusion. It was felt that she would need to undergo ultrasound-guided thoracentesis. This was performed and 0.5 L fluid was removed. On the , she was seen by Dr. Ben Flowers. Unfortunately, the fluid that was removed in the thoracentesis was not sent for chemistry. It had only 6% segs. 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 She was not a candidate for the usual high-dose nonsteroidal and aspirin because of her renal disease and risk for gastritis and bleeding. She would be given colchicine at a lower dose with steroids. Chemistries would be added to the pleural fluid. Chest x-ray was going to be obtained. Oxygen would be provided as needed to maintain saturations in the 90% to 94% range. She does have significant symptoms of obstructive sleep apnea and with her cardiovascular disease, this would warrant an outpatient sleep evaluation. We were doubtful of an infectious process. However, we agreed with treatment of antibiotics covering community-acquired organisms. Cultures had been sent and were negative. Cardiac medications were continued. Heparin was changed to subcutaneously daily when it was okay to stop the heparin drip. Sliding scale insulin was continued. Levemir was increased. A CT scan of the brain without contrast was performed. She was evaluated by Physical Therapy. On 04/25/2017, the patient was alert. She had no shortness of breath. She had an episode the day previously of being poorly responsive. It was felt there was no need to escalate her care at this time. Narcan had been given. CT scan of the brain had shown no evidence of acute intracranial pathology. Recently noted punctate left frontal white matter acute infarct was not well delineated on this exam. Next day, the patient was feeling better. She had left pleuritic pain. She had good pain control. She was alert and cooperative. Hemodialysis therapy was performed. On the , she had some nausea. Oral prednisone taper was being performed. She had complained of some new right shoulder and back pain. She had some mild shortness of breath. Hemodialysis therapy continued. A long taper of steroids would be performed. She continued to do well. Discharge planning was performed. She still complained of some shoulder pain. On 05/01/2017, she did have some constipation. Nausea and vomiting had improved. She was feeling better. She did have some generalized weakness. Discharge instructions were given. Due to her improved and stable condition, she was discharged to [facility] with the above-stated instructions. Discharge Summary [place] [id number] [place]. [address] NAME: BLU RAMIREZ ANN : 70 STATUS : DIS IN PAT#: [id number] AGE: 47 ADM/REG DATE : 04/20/17 MR#: [id number] REPORT SERV DATE: 05/09/17 DICTATED BY: MIKE MORRISON DATE: 05/08/17 REPORT STATUS : Draft TRANSCRIBED BY: MERI DATE: 05/08/17 Information collected by: Marissa Braun I submit the above information as my discharge summary. TG/MERI Mike Morrison M.D. / [id number] CC: Papa Adorno M.D. Lennox Dias M.D. [facility]
--- NOTE | ~2017-04-19 | CN ---
Consultation Report [facility] [address] [place]. [address] NAME: BLU RAMIREZ : 70 STATUS : ADM IN [facility]#: [id number] AGE: 47 ADM/REG DATE : 04/20/17 MR#: [id number] REPORT SERV DATE: 04/24/17 DICTATED BY: DOROTA FLOWERS IV DATE: 04/24/17 REPORT STATUS : Draft TRANSCRIBED BY: MERI DATE: 04/24/17 PULMONARY CONSULTATION DATE OF CONSULTATION: 04/24/2017 REASON FOR REQUEST: Left pleural effusion and atelectasis/consolidation of the lung. HISTORY OF PRESENT ILLNESS: History was obtained from the records and from the patient. Ms. Ramirez is a 47-year-old female with a history of multivessel coronary artery disease, status post recent CABG; depression/anxiety; cerebrovascular disease; diabetes mellitus; end-stage renal disease, on dialysis; elevated cholesterol, who is admitted with chills, fever, elevated white blood cell count, and left pleural effusion with pleuritis. The patient recently underwent urgent five-vessel coronary artery bypass grafting by Dr. Pugh on 04/08 when she was found to have multivessel coronary artery disease. The patient did relatively well postoperatively, however, postoperative films demonstrated an increasing left pleural effusion. The patient noted onset of left-sided pleuritic chest pain with a fever sensation and temperature to 100 and chills soon after discharge. This got progressively worse with increasing shortness of breath for which she re-presented back to the hospital on the . She was found to have a large left pleural effusion with chest CT scan demonstrating some atelectasis/consolidation of the lung, however, with air bronchograms. She underwent a thoracentesis yesterday removing 500 mL of fluid. Unfortunately, it was not sent for chemistries, however, had only 6% segs. The patient noted a decrease in her shortness of breath, however, persistent chest pain under her left breast radiating through to her back. We are asked to consult concerning this. The patient was not sent home on oxygen, though is currently on oxygen. She is not on bronchodilator medication. There was no trauma to her side. She had no exposure to ill individuals. She denies cough or purulent sputum production or hemoptysis. The patient reportedly snores, though is unaware of apneic episodes. She allows herself 10 hours of sleep every evening. Despite this sleep is nonrestorative, and she complains of sedentary hypersomnolence. PULMONARY HISTORY: Remarkable for no history of childhood asthma, known adult obstructive lung disease, or previous pneumonia. She is a lifelong nonsmoker with no significant secondary smoke exposure. 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 She is up to date on her immunizations. PAST MEDICAL HISTORY: 1. Multivessel coronary artery disease, status post CABG. 2. Depression/anxiety. 3. Cerebrovascular disease. 4. Diabetes mellitus. 5. End-stage renal disease, on dialysis. 6. Elevated cholesterol. Consultation Report [place] [id number] [facility] [place]. [address] NAME: BLU RAMIREZ : 70 STATUS : ADM IN [facility]#: [id number] AGE: 47 ADM/REG DATE : 04/20/17 MR#: [id number] REPORT SERV DATE: 04/24/17 DICTATED BY: DOROTA FLOWERS IV DATE: 04/24/17 REPORT STATUS : Draft TRANSCRIBED BY: MERI DATE: 04/24/17 SURGERIES: 1. Vascular graft placements, two in the left forearm and a third in the right anterior cubital space. 2. Coronary artery bypass grafting. 3. PermCath placement. ALLERGIES: LISTED ARE REGLAN, AND SHE IS INTOLERANT OF CODEINE. CURRENT MEDICATIONS: The patient is on aspirin 325 mg daily, Cordarone 200 mg twice a day, Coreg 25 mg twice a day, Effexor 150 mg daily, Keppra 500 mg twice a day, Levemir 15 units at bedtime, Lipitor 80 mg at bedtime, Neurontin 600 mg twice a day, level 2 insulin sliding scale, Orazinc 220 mg daily, Pepcid 20 mg daily, Renvela 1400 mg with meals, thiamine 100 mg daily, Zosyn 3.375 g b.i.d., and vancomycin per pharmacy. SOCIAL HISTORY: Remarkable for no tobacco use. She has rare social alcohol use and smoked marijuana in her youth. She is , has no biologic children. FAMILY HISTORY: Remarkable for father with coronary artery disease and hypertension. Mother with COPD and lung cancer. REVIEW OF SYSTEMS: 14-systems reviewed. Pertinent positives as noted above. PHYSICAL EXAMINATION: GENERAL: This is a well-developed, middle-aged female, appearing older than her stated age with slightly blunted affect, though in no distress. VITAL SIGNS: Temperature is 98.1, pulse is 83, respiratory rate is 18, saturations are 95% on 2 L, blood pressure 125/60. HEENT: Patient is normocephalic, atraumatic. Extraocular movements are intact. Pupils react to light. Sclerae and conjunctivae normal. She has a nasal cannula in place. She has a Mallampati 3 airway with significant narrowing of the posterior pharyngeal space. NECK: Without any palpable lymphadenopathy or thyromegaly. CHEST: The patient has a well-healed sternotomy incision site. She has hypoventilatory efforts. She has a few basilar crackles on the right. There are decreased breath sounds at the left base with bronchial breath sounds. There is no current wheezes, rubs, or rhonchi. CARDIOVASCULAR: The patient has a minimal rub at the left base. She has regular S1, S2 with no clear murmur or S3. There are 1+ carotid upstrokes. No obvious bruit. Jugular venous pulsations are difficult to elicit. She has decreased peripheral pulses. ABDOMEN: Obese, soft, and nontender. There are hypoactive bowel sounds. There is no palpable hepatosplenomegaly or mass. EXTREMITIES: Demonstrate no cyanosis, clubbing, edema, or palpable cords. [place] site scars are noted. NEUROLOGIC: The patient is able to move all extremities. Strength is 5-/5 and sensations reportedly intact to light touch. Consultation Report [address] [place]. [address] NAME: BLU RAMIREZ ANN : 70 STATUS : ADM IN [facility]#: [id number] AGE: 47 ADM/REG DATE : 04/20/17 MR#: [id number] REPORT SERV DATE: 04/24/17 DICTATED BY: DOROTA FLOWERS IV DATE: 04/24/17 REPORT STATUS : Draft TRANSCRIBED BY: MERI DATE: 04/24/17 LABORATORY DATA: Chest x-ray post thoracentesis has not been obtained. Chest CT scan demonstrated a moderate to large left pleural effusion with compressive atelectasis, though with air bronchograms in the left lung. CBC: Hemoglobin 9.8, hematocrit 30.7, platelet count was 237,000, and white blood cell count 27.4. There is 95 segs, no bands. PTT is 55.8. The cell count from the thoracentesis demonstrated 102,476 red blood cells with 4084 white blood cells with 6% segs and 50% large mononuclear cells with the remaining being lymphocytes. Procalcitonin level was 1.19. Chemistry: Sodium 135, potassium 4.8, chloride 97, bicarbonate 26, BUN 43, creatinine 6.92, blood sugars 227, magnesium is 1.9, phos is 5.7. Troponin is 0.34. BNP is 920. ASSESSMENT AND PLAN: 1. Respiratory. 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 She is not a candidate for the usual high-dose nonsteroidals and aspirin because of her renal disease and risk for gastritis and bleeding. She will be given colchicine 0.6 mg daily at a lower dose with steroids 30 mg daily. We will add chemistries to the pleural fluid. Chest x-ray will be obtained now and tomorrow. Oxygen will be provided as needed to maintain saturations in the 90% to 94% range. The patient has significant symptoms of obstructive sleep apnea and with her cardiovascular disease warrants an outpatient sleep evaluation. 2. Infectious disease. I doubt an infectious process, however, agree with treatment with antibiotics covering community-acquired organisms. Cultures have been sent and are currently negative. We will add Florastor one twice a day. 3. Endocrinologic. We will increase Levemir dose tomorrow to 12 units twice a day, and adjust as needed especially while on the steroids. Continue insulin sliding scale. 4. Neurologic. Pain management with continued use of Neurontin. She will remain on the multivitamins. 5. Cardiovascular. We will continue the cardiac medications. 6. Hematologic. Heparin will be changed to subcu daily when okay to stop the heparin drip. Thank you for consulting us. We will follow the patient with you. NM/MODL Dorota Flowers IV, M.D. / [id number] CC: Lennox Lane M.D.
[~2017-04-19 23:22] MED LIST changes: +ASA5GR PO; +B1100 PO; +CORDARONE PO; +DUONEB INH; +EFFEXOR XR150 MG PO; +KEPPRA500 PO; +NORCO1 TA1 PO; +PEP20 PO; +VITC500 PO; +ZINC220C PO
[2017-04-19 23:58] LABS: BASOPHILS 0.1 %; BASOPHILS ABSOLUTE 0.02 10/3/uL (0.0-0.16); EOSINOPHILS 1.9 %; EOSINOPHILS ABSOLUTE 0.32 10/3/uL (0.0-0.53); ER CBC TAT 0 Hrs 22 Mins; HEMATOCRIT 32.3 % (36.0-48.0); HEMOGLOBIN 10.5 g/dL (12.0-16.0); IMMATURE GRANULOCYTES 1.2 %; IMMATURE GRANULOCYTES ABSOLUTE 0.21 10/3/uL (0.0-0.11); LYMPHOCYTES 8.9 %; LYMPHOCYTES ABSOLUTE 1.51 10/3/uL (0.67-4.30); MEAN CORPUS HGB CONC 32.5 g/dL (32.0-36.0); MEAN CORPUSCULAR HEMOGLOB 31.8 pg (26.0-34.0); MEAN CORPUSCULAR VOLUME 97.9 fL (80-100); MEAN PLATELET VOLUME 11.6 fL (9.2-13.0); MONOCYTES 7.7 %; NEUTROPHILS 80.2 %; NEUTROPHILS ABSOLUTE 13.63 10/3/uL (2.02-8.40); PLATELET COUNT 249 10/3/uL (150-400); RBC DISTRIBUTION WIDTH 14.7 % (12.0-16.0)
[2017-04-20 00:04] LABS: MANUAL DIFF NO %
[2017-04-20 00:07] LABS: PARTIAL THROMBO TIME 33.3 SEC (22.5-37.2)
[2017-04-20 00:12] LABS: A/G RATIO 0.8 (0.7-1.9); ALBUMIN 2.9 G/DL (3.5-5.0); ALKALINE PHOSPHATASE 111 U/L (45-117); BUN (BLOOD UREA NITROGEN) 27 MG/DL (6-23); CALCIUM, SERUM 8.2 MG/DL (8.5-10.4); CHLORIDE, SERUM 98 MMOL/L (96-112); CO2 (CARBON DIOXIDE) 29 MMOL/L (24-34); CREATININE 4.16 MG/DL (0.55-1.02); GFR AFRICAN AMERICAN 14 ML/MIN (>=60); GFR NON AFRICAN AMERICAN 12 ML/MIN (>=60); GLOBULIN 3.8 G/DL (2.5-4.1); GLUCOSE, SERUM 241 MG/DL (60-99); POTASSIUM, SERUM 3.8 MMOL/L (3.5-5.3); SGOT(AST) 10 U/L (5-40); SGPT(ALT) 8 U/L (5-65); SODIUM, SERUM 134 MMOL/L (135-148); TOTAL BILIRUBIN 0.3 MG/DL (0-1.2); TOTAL PROTEIN 6.7 G/DL (6.0-8.5); TROPONIN I 1.69 NG/ML (<0.05)
[2017-04-20] MEDS ORDERED: CORDARONE PO (00:15)
[2017-04-20] MEDS ORDERED: X5 PO (00:15)
[2017-04-20] MEDS ORDERED: DUONEB INH (00:15)
[2017-04-20] MEDS ORDERED: PEP20 PO (00:16)
[2017-04-20] MEDS ORDERED: VITC500 PO (00:16)
[2017-04-20] MEDS ORDERED: NEUR600 PO (00:16)
[2017-04-20] MEDS ORDERED: COREG25 PO (00:16)
[2017-04-20] MEDS ORDERED: LIPITOR80 MG PO (00:16)
[2017-04-20] MEDS ORDERED: ASABAYER PO (00:16)
[2017-04-20] MEDS ORDERED: LEVEMIR SC (00:17)
[2017-04-20] MEDS ORDERED: NOVOLOG SC (00:17)
[2017-04-20] MEDS ORDERED: NORCO1 TA1 PO (00:17)
[2017-04-20] MEDS ORDERED: KEPPRA500 PO (00:18)
[2017-04-20] MEDS ORDERED: ZINC220C PO (00:18)
[2017-04-20] MEDS ORDERED: SEVE800T PO (00:18)
[2017-04-20] MEDS ORDERED: EFFEXOR XR150 MG PO (00:18)
[2017-04-20] MEDS ORDERED: B1100 PO (00:18)
[2017-04-20 00:21] LABS: INTERNATIONAL NORMAL RATI 1.2 UNITS (-)
[2017-04-20 00:24] LABS: PROTIME (NOT ORD) 15.2 SEC (12.0-14.5)
[2017-04-21 02:14] LABS: BASOPHILS 0.3 %; BASOPHILS ABSOLUTE 0.07 10/3/uL (0.0-0.16); EOSINOPHILS 2.1 %; EOSINOPHILS ABSOLUTE 0.43 10/3/uL (0.0-0.53); HEMATOCRIT 37.3 % (36.0-48.0); LYMPHOCYTES ABSOLUTE 2.71 10/3/uL (0.67-4.30); MANUAL DIFF NO %; MEAN CORPUS HGB CONC 32.2 g/dL (32.0-36.0); MEAN CORPUSCULAR HEMOGLOB 31.6 pg (26.0-34.0); MEAN CORPUSCULAR VOLUME 98.2 fL (80-100); MEAN PLATELET VOLUME 11.7 fL (9.2-13.0); MONOCYTES 8.3 %; MONOCYTES ABSOLUTE 1.73 10/3/uL (0.21-1.20); NEUTROPHILS 75.3 %; NEUTROPHILS ABSOLUTE 15.78 10/3/uL (2.02-8.40); PLATELET COUNT 241 10/3/uL (150-400); RBC DISTRIBUTION WIDTH 15.1 % (12.0-16.0); WHITE BLOOD CELLS 20.9 10/3/uL (4.5-10.5)
[2017-04-21 02:23] LABS: ALBUMIN 3.2 G/DL (3.5-5.0); BUN (BLOOD UREA NITROGEN) 29 MG/DL (6-23); CALCIUM, SERUM 8.6 MG/DL (8.5-10.4); CHLORIDE, SERUM 99 MMOL/L (96-112); CO2 (CARBON DIOXIDE) 27 MMOL/L (24-34); GLUCOSE, SERUM 262 MG/DL (60-99); POTASSIUM, SERUM 4.1 MMOL/L (3.5-5.3); SODIUM, SERUM 138 MMOL/L (135-148)
[2017-04-21 02:43] LABS: CREATININE 5.08 MG/DL (0.55-1.02); GFR AFRICAN AMERICAN 11 ML/MIN (>=60); GFR NON AFRICAN AMERICAN 9 ML/MIN (>=60); TROPONIN I 1.22 NG/ML (<0.05)
[2017-04-21 09:51] LABS: PROCALCITONIN 2.07 ng/mL (<0.5)
[2017-04-22 08:25] LABS: BE (BASE EXCESS) 1.8 MEQ/L (0 +/- 2.5); CARBOXYHEMOGLOBIN 1.6 % (0-3); HCO3 (ACTUAL BICARBONATE) 25.7 MEQ/L (23-27); HEMOBLOGIN CONTENT 11.2 G/DL (12-16); INSTRUMENT SERIAL # 8087; METHEMOGLOBIN 0.3 % (0-3); O2 CONTENT 13.5 VOL% (18-24); OPERATOR ID 33449; PCO2 (CO2 TENSION) 38 MMHG (35-45); PO2 (O2 TENSION) 52 MMHG (79-93); SAMPLE Arterial; pH 7.45 (7.37-7.43)
[2017-04-22 13:59] LABS: BASOPHILS 0.4 %; BASOPHILS ABSOLUTE 0.06 10/3/uL (0.0-0.16); EOSINOPHILS 3.1 %; EOSINOPHILS ABSOLUTE 0.49 10/3/uL (0.0-0.53); HEMATOCRIT 32.5 % (36.0-48.0); HEMOGLOBIN 10.4 g/dL (12.0-16.0); IMMATURE GRANULOCYTES 0.5 %; IMMATURE GRANULOCYTES ABSOLUTE 0.08 10/3/uL (0.0-0.11); LYMPHOCYTES 17.3 %; LYMPHOCYTES ABSOLUTE 2.73 10/3/uL (0.67-4.30); MANUAL DIFF NO %; MEAN PLATELET VOLUME 11.6 fL (9.2-13.0); MONOCYTES 3.2 %; MONOCYTES ABSOLUTE 0.51 10/3/uL (0.21-1.20); NEUTROPHILS 75.5 %; NEUTROPHILS ABSOLUTE 11.94 10/3/uL (2.02-8.40); PLATELET COUNT 233 10/3/uL (150-400); RBC DISTRIBUTION WIDTH 15.1 % (12.0-16.0); RED CELL COUNT 3.25 10/6/uL (4.0-5.6); WHITE BLOOD CELLS 15.8 10/3/uL (4.5-10.5)
[2017-04-22 14:08] LABS: CALCIUM, SERUM 8.5 MG/DL (8.5-10.4); CHLORIDE, SERUM 101 MMOL/L (96-112); CO2 (CARBON DIOXIDE) 28 MMOL/L (24-34); CREATININE 5.12 MG/DL (0.55-1.02); GFR AFRICAN AMERICAN 11 ML/MIN (>=60); GFR NON AFRICAN AMERICAN 9 ML/MIN (>=60); PHOSPHORUS, SERUM 3.9 MG/DL (2.5-4.5); POTASSIUM, SERUM 3.5 MMOL/L (3.5-5.3); SODIUM, SERUM 140 MMOL/L (135-148)
[2017-04-22 14:09] LABS: BUN (BLOOD UREA NITROGEN) 34 MG/DL (6-23); GLUCOSE, SERUM 167 MG/DL (60-99)
[2017-04-22 14:38] LABS: PROCALCITONIN 1.67 ng/mL (<0.5)
[2017-04-23 05:23] LABS: INTERNATIONAL NORMAL RATI 1.2 UNITS (-); PROTIME (NOT ORD) 15.3 SEC (12.0-14.5)
[2017-04-23 06:43] LABS: ALBUMIN 2.8 G/DL (3.5-5.0); ALKALINE PHOSPHATASE 120 U/L (45-117); CALCIUM, SERUM 8.2 MG/DL (8.5-10.4); CHLORIDE, SERUM 102 MMOL/L (96-112); CO2 (CARBON DIOXIDE) 25 MMOL/L (24-34); CPK 31 U/L (0-200); CREATININE 5.15 MG/DL (0.55-1.02); GFR AFRICAN AMERICAN 11 ML/MIN (>=60); GFR NON AFRICAN AMERICAN 9 ML/MIN (>=60); PHOSPHORUS, SERUM 4.4 MG/DL (2.5-4.5); SGOT(AST) 11 U/L (5-40); SGPT(ALT) 8 U/L (5-65); SODIUM, SERUM 138 MMOL/L (135-148); TOTAL BILIRUBIN 0.2 MG/DL (0-1.2); TOTAL PROTEIN 6.6 G/DL (6.0-8.5)
[2017-04-23 06:44] LABS: BUN (BLOOD UREA NITROGEN) 30 MG/DL (6-23); CK-MB 2.1 NG/ML; DIRECT BILIRUBIN < 0.1 MG/DL (0.0-0.4); GLUCOSE, SERUM 249 MG/DL (60-99); INDIRECT BILIRUBIN(NOT ORDER) 0.1 MG/DL (0.1-0.9); POTASSIUM, SERUM 4.4 MMOL/L (3.5-5.3)
[2017-04-23 06:45] LABS: TROPONIN I 0.46 NG/ML (<0.05)
[2017-04-23 08:49] LABS: HEMATOCRIT 33.8 % (36.0-48.0); HEMOGLOBIN 10.5 g/dL (12.0-16.0); MEAN CORPUS HGB CONC 31.1 g/dL (32.0-36.0); MEAN CORPUSCULAR HEMOGLOB 31.3 pg (26.0-34.0); MEAN CORPUSCULAR VOLUME 100.6 fL (80-100); MEAN PLATELET VOLUME 11.5 fL (9.2-13.0); NUCLEATED RED BLOOD CELLS 0.2 /100WBC (0-0); PLATELET COUNT 200 10/3/uL (150-400); RBC DISTRIBUTION WIDTH 15.8 % (12.0-16.0); RED CELL COUNT 3.36 10/6/uL (4.0-5.6)
[2017-04-23 08:50] LABS: MANUAL DIFF YES %; WHITE BLOOD CELLS 24.9 10/3/uL (4.5-10.5)
[2017-04-23 09:13] LABS: BAND NEUTROPHILS 10 %; EOSINOPHILS 6 %; EOSINOPHILS ABSOLUTE (CALC) 1.49 10/3/uL (0.0-0.53); LYMPHOCYTES 13 %; LYMPHOCYTES ABSOLUTE (CALC) 3.24 10/3/uL (0.67-4.30); MONOCYTES 2 %; NEUTROPHILS ABSOLUTE (CALC) 19.67 10/3/uL (2.02-8.40); SEGMENTED NEUTROPHIL (0) 69 %; TOTAL NUCLEATED CELLS 100
[2017-04-23 09:14] LABS: MACROCYTES 1+ (5-10/OIF) (0-5/OIF); PLATELET ESTIMATE ADQ (ADEQUATE); POLYCHROMASIA 1+ (2-5/OIF) (0-1/OIF); TOXIC GRANULATION 1+
[2017-04-23 16:06] LABS: BODY FLUID RBC (NOT ORD) 102476 /MM3
[2017-04-23 16:07] LABS: BF TOTAL CELL CT (NOT ORD 4084 /MM3
[2017-04-23 16:20] LABS: BD FL LYMPH (NOT ORD) 37 %; BD FL SOURCE (NOT ORD) LT PLEURAL; BF BASO (NOT OF) 0 %; BF LARGE MONONUCLEAR 57 %; BODY FLUID EOS (NOT ORD) 0 %; BODY FLUID SEG (NOT ORD) 6 %
[2017-04-24 08:15] LABS: HEMATOCRIT 30.7 % (36.0-48.0); HEMOGLOBIN 9.8 g/dL (12.0-16.0); MEAN CORPUS HGB CONC 31.9 g/dL (32.0-36.0); MEAN CORPUSCULAR VOLUME 100.3 fL (80-100); MEAN PLATELET VOLUME 11.3 fL (9.2-13.0); PLATELET COUNT 237 10/3/uL (150-400); RBC DISTRIBUTION WIDTH 15.8 % (12.0-16.0); RED CELL COUNT 3.06 10/6/uL (4.0-5.6)
[2017-04-24 08:16] LABS: WHITE BLOOD CELLS 27.4 10/3/uL (4.5-10.5)
[2017-04-24 08:17] LABS: MANUAL DIFF YES %
[2017-04-24 08:35] LABS: EOSINOPHILS 1 %; EOSINOPHILS ABSOLUTE (CALC) 0.27 10/3/uL (0.0-0.53); LYMPHOCYTES 3 %; LYMPHOCYTES ABSOLUTE (CALC) 0.82 10/3/uL (0.67-4.30); MONOCYTES 1 %; MONOCYTES ABSOLUTE (CALC) 0.27 10/3/uL (0.21-1.20); NEUTROPHILS ABSOLUTE (CALC) 26.03 10/3/uL (2.02-8.40); PLATELET ESTIMATE ADQ (ADEQUATE); SEGMENTED NEUTROPHIL (0) 95 %; TOTAL NUCLEATED CELLS 100
[2017-04-24 08:36] LABS: MACROCYTES 1+ (5-10/OIF) (0-5/OIF)
[2017-04-24 08:44] LABS: ALBUMIN 2.7 G/DL (3.5-5.0); CHLORIDE, SERUM 97 MMOL/L (96-112); CO2 (CARBON DIOXIDE) 26 MMOL/L (24-34); CPK 28 U/L (0-200); GLUCOSE, SERUM 227 MG/DL (60-99); POTASSIUM, SERUM 4.8 MMOL/L (3.5-5.3); SODIUM, SERUM 135 MMOL/L (135-148)
[2017-04-24 08:45] LABS: BUN (BLOOD UREA NITROGEN) 43 MG/DL (6-23); CK-MB 2.3 NG/ML; CREATININE 6.92 MG/DL (0.55-1.02); GFR AFRICAN AMERICAN 7 ML/MIN (>=60); GFR NON AFRICAN AMERICAN 6 ML/MIN (>=60); PHOSPHORUS, SERUM 5.7 MG/DL (2.5-4.5); TROPONIN I 0.34 NG/ML (<0.05)
[2017-04-24 11:46] LABS: PROCALCITONIN 1.19 ng/mL (<0.5)
[2017-04-24 13:09] LABS: GLUCOSE BODY FL (NOT ORD) 189 MG/DL; LDH BODY FLUID (NOT ORD) 249 U/L; PROTEIN BODY FLUID 4.4 G/DL
[2017-04-24 16:01] LABS: BE (BASE EXCESS) -2.4 MEQ/L (0 +/- 2.5); CARBOXYHEMOGLOBIN 1.4 % (0-3); DEVICE NC; HCO3 (ACTUAL BICARBONATE) 22.4 MEQ/L (23-27); HEMOBLOGIN CONTENT 10.4 G/DL (12-16); INSTRUMENT SERIAL # 8083; METHEMOGLOBIN 0.3 % (0-3); O2 CONTENT 13.8 VOL% (18-24); PCO2 (CO2 TENSION) 39 MMHG (35-45); PO2 (O2 TENSION) 81 MMHG (79-93); SAMPLE Arterial; pH 7.38 (7.37-7.43)
[2017-04-24 17:23] LABS: GLUCOSE BODY FL (NOT ORD) 192 MG/DL; LDH BODY FLUID (NOT ORD) 228 U/L; PROTEIN BODY FLUID 4.4 G/DL
[2017-04-24 17:25] LABS: BD FL SOURCE (NOT ORD) PLEURAL
[2017-04-24 18:08] LABS: CPK 46 U/L (0-200)
[2017-04-24 18:10] LABS: CK-MB 1.9 NG/ML
[2017-04-24 22:40] LABS: CPK 28 U/L (0-200)
[2017-04-24 22:41] LABS: CK-MB 1.9 NG/ML; TROPONIN I 0.25 NG/ML (<0.05)
[2017-04-25 07:38] LABS: BASOPHILS 0.2 %; BASOPHILS ABSOLUTE 0.05 10/3/uL (0.0-0.16); EOSINOPHILS 2.2 %; EOSINOPHILS ABSOLUTE 0.48 10/3/uL (0.0-0.53); HEMATOCRIT 28.6 % (36.0-48.0); HEMOGLOBIN 8.8 g/dL (12.0-16.0); IMMATURE GRANULOCYTES 0.6 %; IMMATURE GRANULOCYTES ABSOLUTE 0.12 10/3/uL (0.0-0.11); LYMPHOCYTES 11.8 %; LYMPHOCYTES ABSOLUTE 2.53 10/3/uL (0.67-4.30); MEAN CORPUS HGB CONC 30.8 g/dL (32.0-36.0); MEAN PLATELET VOLUME 11.4 fL (9.2-13.0); NEUTROPHILS 79.2 %; NEUTROPHILS ABSOLUTE 17.01 10/3/uL (2.02-8.40); PLATELET COUNT 178 10/3/uL (150-400); RED CELL COUNT 2.75 10/6/uL (4.0-5.6); WHITE BLOOD CELLS 21.5 10/3/uL (4.5-10.5)
[2017-04-25 07:39] LABS: MANUAL DIFF NO %
[2017-04-25 07:57] LABS: CK-MB 1.7 NG/ML; CPK 52 U/L (0-200); TROPONIN I 0.22 NG/ML (<0.05)
[2017-04-26 15:37] LABS: BASOPHILS 0.2 %; BASOPHILS ABSOLUTE 0.04 10/3/uL (0.0-0.16); EOSINOPHILS 0.6 %; EOSINOPHILS ABSOLUTE 0.12 10/3/uL (0.0-0.53); HEMATOCRIT 27.3 % (36.0-48.0); HEMOGLOBIN 8.4 g/dL (12.0-16.0); IMMATURE GRANULOCYTES 0.3 %; IMMATURE GRANULOCYTES ABSOLUTE 0.07 10/3/uL (0.0-0.11); LYMPHOCYTES 6.4 %; LYMPHOCYTES ABSOLUTE 1.31 10/3/uL (0.67-4.30); MANUAL DIFF NO %; MEAN CORPUS HGB CONC 30.8 g/dL (32.0-36.0); MEAN CORPUSCULAR HEMOGLOB 31.3 pg (26.0-34.0); MEAN CORPUSCULAR VOLUME 101.9 fL (80-100); MONOCYTES 1.5 %; NEUTROPHILS ABSOLUTE 18.59 10/3/uL (2.02-8.40); PLATELET COUNT 166 10/3/uL (150-400); RED CELL COUNT 2.68 10/6/uL (4.0-5.6); WHITE BLOOD CELLS 20.4 10/3/uL (4.5-10.5)
[2017-04-26 15:56] LABS: CALCIUM, SERUM 8.5 MG/DL (8.5-10.4); CHLORIDE, SERUM 99 MMOL/L (96-112); CO2 (CARBON DIOXIDE) 25 MMOL/L (24-34); POTASSIUM, SERUM 5.2 MMOL/L (3.5-5.3); SODIUM, SERUM 133 MMOL/L (135-148)
[2017-04-26 15:57] LABS: BUN (BLOOD UREA NITROGEN) 57 MG/DL (6-23); CK-MB 1.4 NG/ML; CPK 22 U/L (0-200); CREATININE 7.68 MG/DL (0.55-1.02); GFR AFRICAN AMERICAN 7 ML/MIN (>=60); GFR NON AFRICAN AMERICAN 6 ML/MIN (>=60); GLUCOSE, SERUM 297 MG/DL (60-99); PHOSPHORUS, SERUM 6.9 MG/DL (2.5-4.5); TROPONIN I 0.15 NG/ML (<0.05)
[2017-04-27 06:22] LABS: BASOPHILS 0.2 %; BASOPHILS ABSOLUTE 0.03 10/3/uL (0.0-0.16); EOSINOPHILS 0.8 %; EOSINOPHILS ABSOLUTE 0.13 10/3/uL (0.0-0.53); HEMOGLOBIN 9.3 g/dL (12.0-16.0); IMMATURE GRANULOCYTES 0.4 %; IMMATURE GRANULOCYTES ABSOLUTE 0.06 10/3/uL (0.0-0.11); LYMPHOCYTES 14.4 %; LYMPHOCYTES ABSOLUTE 2.39 10/3/uL (0.67-4.30); MEAN CORPUS HGB CONC 30.3 g/dL (32.0-36.0); MEAN CORPUSCULAR HEMOGLOB 31.6 pg (26.0-34.0); MEAN CORPUSCULAR VOLUME 104.4 fL (80-100); MEAN PLATELET VOLUME 11.4 fL (9.2-13.0); MONOCYTES ABSOLUTE 0.83 10/3/uL (0.21-1.20); NEUTROPHILS 79.2 %; NEUTROPHILS ABSOLUTE 13.18 10/3/uL (2.02-8.40); PLATELET COUNT 183 10/3/uL (150-400); RBC DISTRIBUTION WIDTH 15.8 % (12.0-16.0); RED CELL COUNT 2.94 10/6/uL (4.0-5.6); WHITE BLOOD CELLS 16.6 10/3/uL (4.5-10.5)
[2017-04-27 06:28] LABS: HEMATOCRIT 30.7 % (36.0-48.0); MANUAL DIFF NO %
[2017-04-27 06:35] LABS: ALBUMIN 3.1 G/DL (3.5-5.0); BUN (BLOOD UREA NITROGEN) 37 MG/DL (6-23); CALCIUM, SERUM 8.7 MG/DL (8.5-10.4); CHLORIDE, SERUM 104 MMOL/L (96-112); CK-MB 1.2 NG/ML; CO2 (CARBON DIOXIDE) 29 MMOL/L (24-34); CPK 19 U/L (0-200); CREATININE 5.55 MG/DL (0.55-1.02); GFR AFRICAN AMERICAN 10 ML/MIN (>=60); GFR NON AFRICAN AMERICAN 8 ML/MIN (>=60); GLUCOSE, SERUM 189 MG/DL (60-99); PHOSPHORUS, SERUM 4.7 MG/DL (2.5-4.5); POTASSIUM, SERUM 4.4 MMOL/L (3.5-5.3); SODIUM, SERUM 141 MMOL/L (135-148); TROPONIN I 0.14 NG/ML (<0.05)
[2017-04-28 09:12] LABS: CPK 18 U/L (0-200)
[2017-04-28 09:13] LABS: CK-MB 1.3 NG/ML; TROPONIN I 0.17 NG/ML (<0.05)
[2017-04-29 08:21] LABS: BASOPHILS 0.2 %; BASOPHILS ABSOLUTE 0.04 10/3/uL (0.0-0.16); EOSINOPHILS 0.5 %; EOSINOPHILS ABSOLUTE 0.08 10/3/uL (0.0-0.53); HEMATOCRIT 30.2 % (36.0-48.0); HEMOGLOBIN 9.5 g/dL (12.0-16.0); IMMATURE GRANULOCYTES 0.7 %; IMMATURE GRANULOCYTES ABSOLUTE 0.12 10/3/uL (0.0-0.11); LYMPHOCYTES 17.1 %; LYMPHOCYTES ABSOLUTE 3.03 10/3/uL (0.67-4.30); MEAN CORPUS HGB CONC 31.5 g/dL (32.0-36.0); MEAN CORPUSCULAR HEMOGLOB 31.6 pg (26.0-34.0); MEAN PLATELET VOLUME 11.6 fL (9.2-13.0); MONOCYTES 4.6 %; MONOCYTES ABSOLUTE 0.82 10/3/uL (0.21-1.20); NEUTROPHILS 76.9 %; PLATELET COUNT 197 10/3/uL (150-400); RBC DISTRIBUTION WIDTH 15.5 % (12.0-16.0); RED CELL COUNT 3.01 10/6/uL (4.0-5.6); WHITE BLOOD CELLS 17.7 10/3/uL (4.5-10.5)
[2017-04-29 08:24] LABS: MANUAL DIFF NO %; MEAN CORPUSCULAR VOLUME 100.3 fL (80-100)
[2017-04-29 08:41] LABS: BUN (BLOOD UREA NITROGEN) 84 MG/DL (6-23); CALCIUM, SERUM 8.8 MG/DL (8.5-10.4); CHLORIDE, SERUM 100 MMOL/L (96-112); CO2 (CARBON DIOXIDE) 27 MMOL/L (24-34); GFR AFRICAN AMERICAN 5 ML/MIN (>=60); GFR NON AFRICAN AMERICAN 5 ML/MIN (>=60); GLUCOSE, SERUM 175 MG/DL (60-99); PHOSPHORUS, SERUM 5.8 MG/DL (2.5-4.5); POTASSIUM, SERUM 5.6 MMOL/L (3.5-5.3); SODIUM, SERUM 137 MMOL/L (135-148)
[2017-04-29 09:04] LABS: CPK 19 U/L (0-200)
[2017-04-29 09:08] LABS: CK-MB 1.5 NG/ML
[2017-04-29 09:09] LABS: TROPONIN I 0.13 NG/ML (<0.05)
[2017-04-30 06:06] LABS: CPK 25 U/L (0-200)
[2017-04-30 06:08] LABS: CK-MB 2.2 NG/ML; TROPONIN I 0.12 NG/ML (<0.05)
[2017-05-01 08:09] LABS: BASOPHILS 0.1 %; BASOPHILS ABSOLUTE 0.03 10/3/uL (0.0-0.16); EOSINOPHILS 0.6 %; EOSINOPHILS ABSOLUTE 0.13 10/3/uL (0.0-0.53); HEMATOCRIT 30.9 % (36.0-48.0); HEMOGLOBIN 9.8 g/dL (12.0-16.0); IMMATURE GRANULOCYTES 0.6 %; IMMATURE GRANULOCYTES ABSOLUTE 0.12 10/3/uL (0.0-0.11); LYMPHOCYTES 16.2 %; LYMPHOCYTES ABSOLUTE 3.37 10/3/uL (0.67-4.30); MEAN CORPUS HGB CONC 31.7 g/dL (32.0-36.0); MEAN CORPUSCULAR HEMOGLOB 31.7 pg (26.0-34.0); MEAN PLATELET VOLUME 11.3 fL (9.2-13.0); MONOCYTES 4.8 %; MONOCYTES ABSOLUTE 1.01 10/3/uL (0.21-1.20); NEUTROPHILS 77.7 %; NEUTROPHILS ABSOLUTE 16.19 10/3/uL (2.02-8.40); PLATELET COUNT 206 10/3/uL (150-400); RBC DISTRIBUTION WIDTH 15.4 % (12.0-16.0); RED CELL COUNT 3.09 10/6/uL (4.0-5.6); WHITE BLOOD CELLS 20.9 10/3/uL (4.5-10.5)
[2017-05-01 08:10] LABS: MANUAL DIFF NO %
[2017-05-01 08:29] LABS: CALCIUM, SERUM 8.5 MG/DL (8.5-10.4); CHLORIDE, SERUM 100 MMOL/L (96-112); CO2 (CARBON DIOXIDE) 25 MMOL/L (24-34); CPK 25 U/L (0-200); CREATININE 8.76 MG/DL (0.55-1.02); GFR AFRICAN AMERICAN 6 ML/MIN (>=60); GFR NON AFRICAN AMERICAN 5 ML/MIN (>=60); GLUCOSE, SERUM 175 MG/DL (60-99); SODIUM, SERUM 135 MMOL/L (135-148)
[2017-05-01 08:30] LABS: BUN (BLOOD UREA NITROGEN) 91 MG/DL (6-23); CK-MB 2.7 NG/ML; PHOSPHORUS, SERUM 4.6 MG/DL (2.5-4.5); POTASSIUM, SERUM 6.5 MMOL/L (3.5-5.3); TROPONIN I 0.14 NG/ML (<0.05)
[2017-06-03] MEDS ORDERED: SUPER B COMP PO (19:41)
[2017-06-03] MEDS ORDERED: PR25 PO (20:03)
== END 2017-05-01 15:16 | DRG 314 ==
LOC: ER 23:22 → 2SO 04-20 01:09
PROVIDERS: Emergency Medicine; Internal Medicine Cardiovascular Disease; Internal Medicine Critical Care Medicine; Internal Medicine Nephrology; Nurse Practitioner; Registered Nurse
PROC: 5A1D60Z (ICD-10-PCS; 2017-04-20)
PROC: 0W9B3ZZ Drainage of Left Pleural Cavity, Percutaneous Approach (ICD-10-PCS; principal; 2017-04-23)
DX: I97.0 Postcardiotomy syndrome (principal); J81.0 Acute pulmonary edema; J96.00 Acute respiratory failure, unspecified whether with hypoxia or hypercapnia; I13.2 Hypertensive heart and chronic kidney disease with heart failure and with stage 5 chronic kidney disease, or end stage renal disease; N18.6 End stage renal disease; I50.33 Acute on chronic diastolic (congestive) heart failure; I24.8 Other forms of acute ischemic heart disease; J98.11 Atelectasis; E11.22 Type 2 diabetes mellitus with diabetic chronic kidney disease; I25.10 Atherosclerotic heart disease of native coronary artery without angina pectoris; Z77.22 Contact with and (suspected) exposure to environmental tobacco smoke (acute) (chronic); E66.9 Obesity, unspecified; G35 Multiple sclerosis; F41.9 Anxiety disorder, unspecified; F32.9 Major depressive disorder, single episode, unspecified; R62.7 Adult failure to thrive; E78.00 Pure hypercholesterolemia, unspecified; K59.00 Constipation, unspecified; E87.5 Hyperkalemia; Z99.2 Dependence on renal dialysis; Z95.1 Presence of aortocoronary bypass graft; Z86.73 Personal history of transient ischemic attack (TIA), and cerebral infarction without residual deficits; Z82.5 Family history of asthma and other chronic lower respiratory diseases; Z95.5 Presence of coronary angioplasty implant and graft; Z82.49 Family history of ischemic heart disease and other diseases of the circulatory system; Z83.3 Family history of diabetes mellitus; Z80.1 Family history of malignant neoplasm of trachea, bronchus and lung; Z88.5 Allergy status to narcotic agent; Z98.890 Other specified postprocedural states
CPT/HCPCS: 32555; 36600; 70450; 71010; 71020; 71035; 71250; 74000; 80053; 80069; 80076; 82550; 82553; 82805; 82945; 82962; 83615; 83735; 83880; 84132; 84145; 84157; 84484; 85025; 85610; 85730; 87040; 87070; 87205; 89051; 93005; 97110-GP; 97116-GP; 97162-GP; 97165-GO; 97530-GO; 97530-GP; 97535-GO; 99285; A9270-GY; C8929; G0257; J2405; J2543; J2550; J3370; P9047; Q9957

== ENCOUNTER 2017-05-19 19:52 | Inpatient (IN) | payer BC ==
--- NOTE | ~2017-05-19 | DS ---
Discharge Summary [facility] [address] [place]. [address] NAME: BLU VAN : 70 STATUS : DIS IN PAT#: [id number] AGE: 47 ADM/REG DATE : 05/20/17 MR#: [id number] REPORT SERV DATE: 06/08/17 DICTATED BY: IGOR BENSON DATE: 06/07/17 REPORT STATUS : Draft TRANSCRIBED BY: MERI DATE: 06/07/17 Data Collection from hospitalization DISCHARGE DIAGNOSES: 1. Nonhealing sternal wound. 2. Fall. 3. Nondisplaced fracture of the proximal fibula. 4. Coronary artery disease, status post coronary artery bypass grafting. 5. Type 2 diabetes mellitus. 6. Immature right upper extremity fistula. 7. Hypertension. 8. History of cerebrovascular accident. 9. Chronic depression. 10.History of multiple sclerosis. 11.History of hyperkalemia. 12.History of diastolic dysfunction. CONSULTATIONS: 1. Ben Ross NP. 2. Rojelio Muniz M.D. 3. Bradley Villarreal M.D. PROCEDURES PERFORMED: 1. CT scan of the brain without contrast on 05/19/2017. 2. CT scan of the right knee without contrast on 05/21/2017. MEDICATIONS: DuoNeb inhaled solution one nebulized inhalation twice a day, Xanax 0.5 mg twice a day as needed, Cordarone 200 mg twice a day, Eliquis 2.5 mg twice a day, aspirin 81 mg daily, Lipitor 80 mg at bedtime, Coreg 25 mg twice a day, Neurontin 600 mg twice a day, Pledger 7.5/325 one tablet three times a day as needed, NovoLog injection insulin as instructed, Levemir FlexPen 12 units subcutaneously twice a day, Keppra 500 mg twice a day, Levaquin 500 mg every 48 hours, Prinivil 10 mg daily, magnesium one tablet daily, zinc one tablet daily, vitamin C one tablet daily, and Effexor XR 150 mg daily. CONDITION AT DISCHARGE: Stable. DISPOSITION: The patient was discharged home to be followed by home health care on a renal- diabetic diet with activities as instructed. She would follow up with Ben Ross three weeks following discharge. She would follow up on Saturday following discharge for dialysis therapy. HOSPITAL COURSE: This is a 47-year-old female who presented to the hospital complaining of drainage from the chest wound from recent coronary artery bypass grafting. She also had hyperkalemia, volume overload, and recent falls. She was previously an inpatient here at [facility] and had undergone cardiac catheterization on 04/04/2017 with an echocardiogram and required urgent coronary artery bypass grafting x5 on 04/08/2017. She had a prolonged hospital stay and was discharged to rehabilitation on or around 04/28/2017. She was readmitted to [facility] for complaints of worsening right foot paresthesias, Discharge Summary [facility] [address] [facility] [place]. [address] NAME: BLU VAN : 70 STATUS : DIS IN PAT#: [id number] AGE: 47 ADM/REG DATE : 05/20/17 MR#: [id number] REPORT SERV DATE: 06/08/17 DICTATED BY: IGOR BENSON DATE: 06/07/17 REPORT STATUS : Draft TRANSCRIBED BY: MERI DATE: 06/07/17 which was felt to be subsequent to multiple sclerosis flare. She was returned to [facility] on 05/10/2017. She presented to [facility] from home now complaining of drainage from the chest wound that was related to her previous coronary artery bypass grafting during her previous admission here. She has had two falls at home with ongoing pain in the right leg and ankle with negative imaging there. She had no associated nausea, vomiting, or diarrhea and has had no febrile episodes by report. She was admitted to the hospital at this time for further evaluation and treatment. Upon admission, a CT scan of the brain without contrast was unremarkable. No intracranial pathology was noted. Wound culture was obtained. Dialysis therapy was going to be performed via a right subclavian access. IV antibiotics were being provided. Medical telemetry would monitor her closely. Empiric antibiotics were continued. We would consider removal of the subclavian access if her right upper extremity access was usable. She was placed on a renal diet. The following day, she was seen by Ben Ross for evaluation of the sternal wound. She had missed her followup appointment with them a couple of weeks prior to this admission secondary to being hospitalized at [place]. She was supposed to follow up again on the day of this consult, but did not show up for that appointment either. She had presented to the emergency room complaining of draining from her chest incision and swelling and pain in the right lower extremity. He has not received any calls from her since she was discharged from the hospital. So this was the first time, he was aware that she had any issues with her sternal wound. She was found to have an elevated white count at 20 and a normal procalcitonin. Chest x-ray suggested fluid overload with elevated BNP. She had been on vancomycin for suspected sternal infection. She had been afebrile since admission. Wound cultures were growing two colonies of Staphylococcus species. Blood cultures were negative at this time. She had a very flat affect, which was normal for her. There was some erythema around the wound bed. White blood cell count was 16.4. Creatinine was 7.55. It appeared that she had a superficial infection of the sternal incision. IV vancomycin was continued for now. Wet-to-dry dressing changes would be performed. It was felt that she would likely need home health care. A CT scan of the right knee without contrast was performed. She was found to have a nondisplaced fracture of the proximal fibular shaft with effusion. Orthopedic consult was requested. She was evaluated by Occupational and Physical Therapy. Wound care was going to be asked to place a VAC dressing. IV vancomycin was continued at this time. On 05/22/2017, hemodialysis therapy was performed. Her wound appeared stable. She had no new complaints. Cultures were still pending. White count had improved. It was felt that she may need four to six weeks of IV antibiotics. She does have a history of poor compliance. She was seen by Dr. Rojelio Muniz for evaluation and treatment of possible sternal wound infection. The patient had been started on vancomycin with Levaquin being added later intravenously. Cultures had grown two colonies of gram-positive cocci identified as coagulase-negative Staph. There was also a gram-negative sapphire growing in the broth that had been subcultured. She had no fever, but did have an elevated white blood cell count. This was now coming down and was normal. She was not complaining of pain in the sternum. She had a normal differential on the white blood cell count. He felt that her sternal wound infection appeared thus far to be superficial. He was most concerned about the gram-negative sapphire. If the Staph proved to be coagulase- negative Staph, he suspected that this was just a containment. He recommended that we continue vancomycin and Levaquin both for now until we receive further culture information. She was changed to oral Levaquin. Discharge Summary [facility] [address] [address] NAME: BLU VAN : 70 STATUS : DIS IN PAT#: [id number] AGE: 47 ADM/REG DATE : 05/20/17 MR#: [id number] REPORT SERV DATE: 06/08/17 DICTATED BY: IGOR BENSON. DATE: 06/07/17 REPORT STATUS : Draft TRANSCRIBED BY: MODL DATE: 06/07/17 On 05/23/2017, she seemed to be feeling better. She was more alert. She was afebrile. Blood cultures were negative. Vancomycin was stopped. The wound VAC was in place. The following day, she was feeling better. She said she was feeling good. She had no major complaints. It was felt that she would likely need rehabilitation/custodial facility for continued wound care, antibiotics, hemodialysis, and rehab. Discharge planning was performed. The wound VAC remained in place. The patient was seen by Dr. Bradley Villarreal. The patient had been found to have a right nondisplaced fibular neck fracture. It was felt that the patient would be allowed to weight bear as tolerated on the right lower extremity, no brace was needed. She could follow up with Dr. Villarreal as needed. On 05/25/2017, she was alert and cooperative. She continued to do well. Discharge instructions were given. Due to her improved and stable condition, she was discharged home with the above-stated instructions. Information collected by: Marissa Braun I submit the above information as my discharge summary. TG/MERI Igor Benson M.D. / [id number] CC: Lennox Curry NP Ted Scoggins, M.D. Mark Anderson, M.D. William Hartley, M.D.
--- NOTE | ~2017-05-19 | HP ---
History And Physical [place] [address] [facility] [place]. [address] NAME: EUGENIA DALE : 70 STATUS : DIS IN PAT#: [id number] AGE: 47 ADM/REG DATE : 05/20/17 MR#: [id number] REPORT SERV DATE: 05/20/17 DICTATED BY: DATE: REPORT STATUS : Draft TRANSCRIBED BY: MODL DATE: 05/20/17 DATE OF ADMISSION: 05/20/2017 REASON FOR ADMISSION: End-stage renal disease with draining chest wound. HISTORY OF PRESENT ILLNESS: This is a fairly pleasant, 47-year-old female patient, known to our service by her previous name as well, Eugenia Aisha Bernal, now Eugenia Dale, admitted to our service with a complaint of drainage from a chest wound from recent CABG, as well as hyperkalemia, volume overload and recent falls. She was previously inpatient here at [facility] and underwent cardiac catheterization on 04/04/2017, with an echocardiogram and required urgent CABG x5 on 04/08/2017. She had a prolonged hospital stay and then was discharged to rehabilitation on or around 04/28/2017. She was readmitted to [facility] for a complaint of worsening right foot paresthesias, which was felt to be subsequent to a multiple sclerosis flare. She was returned to [facility] on 05/10/2017. She presents to [facility] from home, now complaining of drainage from the chest wound that was related to her previous CABG during her previous admission here, two falls at home with ongoing pain to her right leg and ankle with negative imaging here. She reports no associated nausea, vomiting, or diarrhea and has had no febrile episodes by report. PAST MEDICAL HISTORY: Includes end-stage renal disease, Saturday, Saturday, Saturday dialysis via a right subclavian access with an immature right upper extremity fistula. History is also positive for chronic pain, coronary artery disease, status post CABG x5 emergently by Dr. Pugh as listed above. Chronic nausea and vomiting. Hypertension, diabetes mellitus type 2, history of cerebrovascular accident, chronic depression, and history of multiple sclerosis, history is also positive for hyperkalemia and diastolic dysfunction. MEDICATIONS: Unavailable to me currently. ALLERGIES: SHE LISTS ALLERGIES TO RITALIN AND STADOL HISTORICALLY. REVIEW OF SYSTEMS: Completed. Please see HPI for pertinent details. SOCIAL HISTORY: No ETOH. No illicit drugs. No tobacco. Does use chronic pain medications. FAMILY HISTORY: Noncontributory and not reviewed during this consultation and admission. PHYSICAL EXAMINATION: VITAL SIGNS: Blood pressure 134/69, temperature at 97.8, respiratory rate 15, heart rate is 72 beats per minute and regular. GENERAL: She is a chronically ill-appearing, female patient, lying awake and alert in her bed during evaluation. HEENT: Normocephalic and atraumatic. Normal ocular movements. No scleral icterus. No conjunctival pallor is appreciated. NECK: Supple. No thyromegaly. No JVD or mass. CHEST: Shows positive S1 and S2. No rubs. No gallops. History And Physical [address] [address] NAME: EUGENIA DALE : 70 STATUS : DIS IN PAT#: [id number] AGE: 47 ADM/REG DATE : 05/20/17 MR#: [id number] REPORT SERV DATE: 05/20/17 DICTATED BY: DATE: REPORT STATUS : Draft TRANSCRIBED BY: MODL DATE: 05/20/17 LUNGS: Diminished throughout, normal expansion and effort bilaterally. GI: Positive bowel sounds in all four quadrants without appreciable mass or tenderness. : Deferred. EXTREMITIES: Show positive pulses in all four extremities. She has a right upper extremity fistula that is in place with a positive bruit and thrill. She has a right subclavian access that is in place with no drainage or other signs of infection. NEUROLOGIC: She appears to be grossly intact and nonfocal. SKIN: Warm, dry, and intact at visualized surfaces. No rash, lesions, or ecchymosis. LABORATORY DATA AND IMAGING: Pertinent laboratories and imaging to this evaluation. Lumbar spine imaging; slight compression of the superior endplate of T12, age unknown, otherwise negative lumbar spine series. Right knee; no fracture. Right ankle; heel spur and vascular calcification, otherwise negative right ankle. Portable chest; mild volume overload and CHF pattern, focal infiltrate at the left lower lobe. Vas-Cath tip in right atrium. CT of the brain without contrast, unremarkable noncontrasted head CT. No intracranial pathology is noted. Culture of wound is progress. Procalcitonin 0.44, sodium 133, potassium 6.3, chloride 98, CO2 of 27, BUN 67, creatinine 6.66, reflected GFR at 7 mL/minute, calcium 8.7, magnesium 2.2, alkaline phosphatase 137, ALT and AST 26 and 14, troponin 0.02. Lactate 1.2. B-natriuretic peptide 808.3. IMPRESSION AND PLAN: This is a fairly pleasant, end-stage renal disease, 47-year-old female patient, medical history as listed above. Recent falls at home with draining chest wound with an elevated white blood cell count noted at 20.6 with no elevation of her procalcitonin. She has recently been inpatient at [facility] on two occasions and did require an evaluation at [facility] as listed above. Place her inpatient here, dialysis today on a 2K bath via a right subclavian access as we are unsure of clearance of her right upper extremity access. May further investigate right upper extremity access usability during this hospital stay. IV antibiotics were currently in place. Her home medications need to be addressed. We will request the pharmacy to undertake that today and place her on Medical Telemetry. Medical Telemetry will monitor her closely and continue her empiric antibiotics. Consider removal of the subclavian access if her right upper extremity access is usable and ask Physical Therapy to evaluate her as well as nursing wound care. Strict I's and O's. Daily weights. Renal diet. No electrolyte protocol. Follow the patient closely. Further modification of treatment plan may be made based on clinical presentation, the patient's laboratory results, further consultation with renal attending. /MERI Vasile Jack NP / [id number] CC: History And Physical [address] [address] NAME: EUGENIA DALE : 70 STATUS : DIS IN PAT#: [id number] AGE: 47 ADM/REG DATE : 05/20/17 MR#: [id number] REPORT SERV DATE: 05/20/17 DICTATED BY: DATE: REPORT STATUS : Draft TRANSCRIBED BY: MERI DATE: 05/20/17 Lennox Curry, M.D.
--- NOTE | ~2017-05-19 | CN ---
Consultation Report [facility] [address] [place]. [address] NAME: BLU VAN : 70 STATUS : DIS IN PAT#: [id number] AGE: 47 ADM/REG DATE : 05/20/17 MR#: [id number] REPORT SERV DATE: 05/23/17 DICTATED BY: ALANNAH SHEPARD DATE: 05/22/17 REPORT STATUS : Draft TRANSCRIBED BY: MODLyudmila DATE: 05/22/17 INFECTIOUS DISEASE CONSULT DATE OF CONSULTATION: REASON FOR REFERRAL: Evaluation and treatment of possible sternal wound infection. HISTORY OF PRESENT ILLNESS: The patient is a 47-year-old female with a history of hypertension and diabetes mellitus. She has had a cerebrovascular accident in the past. She has depression, multiple sclerosis, end-stage renal disease for which she is on hemodialysis and coronary artery disease, and she underwent coronary artery bypass grafting here at [facility], five vessels on 04/08/2017. She had a complicated postoperative course, was here until 04/28/2017 and then sent to rehab. She had not been seen in followup by CV Surgery. She developed drainage from her sternum in the last couple of weeks. It is uncertain exactly when that happened. It was not associated with any increased pain according to the patient. No fevers, chills, malaise, or flu-like symptoms. She suffered no trauma to it and no unusual environmental exposures. She was on no antibiotics initially for that. The culture was done, areas of dehiscence, and she was started on vancomycin with Levaquin being added later intravenously. Those cultures have grown two colonies of gram- positive cocci, identified today as coagulase-negative Staph, at least identified preliminarily. There is also a gram-negative sapphire growing in the broth that has been subcultured. She had no fever, but she did have an elevated white blood cell count when she came in and that is coming down and is now normal. She says she overall feels un-ill and is not complaining of pain in the sternum, so really no change in how she feels there. PAST MEDICAL HISTORY: Otherwise, unremarkable. MEDICATIONS: As described above. ALLERGIES: NO KNOWN ANTIMICROBIAL ALLERGIES. SOCIAL HISTORY: She is disabled, , nonsmoker. No history of alcohol or substance abuse. FAMILY HISTORY: Noncontributory. PHYSICAL EXAMINATION: GENERAL: She is an adult female, seen in dialysis with a very flat affect, but answers questions appropriately and indicates that she is oriented x3. VITAL SIGNS: Her temperature here has been normal since arrival and currently it is 98 with a pulse of 72, respirations 20, blood pressure 143/68. Weight is 81 kg. HEENT: Sclerae are clear. No oral lesions. NECK: Supple. LUNGS: Clear anteriorly. HEART: Regular rate and rhythm. Consultation Report [address] [place]. [address] NAME: BLU VAN : 70 STATUS : DIS IN PAT#: [id number] AGE: 47 ADM/REG DATE : 05/20/17 MR#: [id number] REPORT SERV DATE: 05/23/17 DICTATED BY: ALANNAH SHEPARD DATE: 05/22/17 REPORT STATUS : Draft TRANSCRIBED BY: MERI DATE: 05/22/17 ABDOMEN: Soft, nontender. Positive bowel sounds. She had initially some pain in her right leg, but the incisions there all appeared to be healing well from the vein graft harvesting. Her sternal wound has a shallow area of dehiscence at the top one-third with minimal drainage and a clean base, lower than that is a larger area with some serosanguineous drainage from it and granulation tissue in the base. I do not palpate any instability and no unexpected pain with those. No other skin or soft tissue lesions are noted. LABORATORY DATA: White blood cell count 20.6 when she came in, it is 10.7 today with hematocrit of 24.3, and platelets 196. Normal differential on the white blood cell count. BUN and creatinine are 61 and 6.79. Procalcitonin 0.44. Blood cultures taken at admission remain negative. IMPRESSION: Her sternal wound infection thus far appears to be superficial and things that are possibly growing, I would be most concerned about the gram-negative sapphire. If the Staph indeed proves to be coagulase-negative Staph, I suspect that is just a contaminant. RECOMMENDATIONS: 1. We will continue vancomycin and Levaquin both for now until I get further culture information, but we will change Levaquin to oral. 2. Review the cultures tomorrow. Change antibiotics as indicated. 3. If only coag-negative Staph is identified, I think the vancomycin can be discontinued. Finally, I will follow the patient with you. I appreciate very much your consulting on this patient. SHEY/MERI Alannah Shepard M.D. / [id number] CC: Lennox Curry M.D. SURGERY
--- NOTE | ~2017-05-19 | CN ---
Consultation Report [facility] [address] [place]. [address] NAME: BLU VAN : 70 STATUS : DIS IN PAT#: [id number] AGE: 47 ADM/REG DATE : 05/20/17 MR#: [id number] REPORT SERV DATE: 05/21/17 DICTATED BY: DOROTA REID DATE: 05/21/17 REPORT STATUS : Draft TRANSCRIBED BY: MODL DATE: 05/21/17 CONSULTATION REPORT DATE OF CONSULTATION: 05/21/2017 REASON FOR CONSULTATION: Evaluation of sternal wound. HISTORY OF PRESENT ILLNESS: This is a 47-year-old female who has a history of end- stage renal disease and underwent emergent coronary artery bypass grafting of five vessels on 04/08/2017 with prolonged hospitalization at that time due to neurological symptoms. She is initially discharged on 04/28/2017 to rehab facility. She missed her followup appointment with us a couple of weeks ago secondary to being hospitalized at [facility]. She was supposed to follow up with us again today in the office, but did not show for that appointment either. She presented to the emergency room here yesterday with reports of draining from her chest incision and swelling and pain in her right lower extremity. I have not received any calls from her since she was discharged from the hospital, so this is the first time I was aware that she was having any issues with her sternal wound. In the emergency room, she is found to have a white blood cell count that was elevated at 20 with normal procalcitonin. Chest x-ray suggested fluid overload with elevated BNP. Imaging of her right lower extremity showed no acute skeletal injury. She has been on vancomycin for suspected sternal infection. She has been afebrile since her admission. She currently has some wound cultures pending, which are growing two colonies of Staphylococcus species and negative blood cultures at 24 hours. Currently, she is sitting up in a chair with no complaints. She has a very flat affect, which is normal for her. Evaluation of her sternal incision shows two areas that have dehisced at the top of her incision, there is an area measuring approximately 2.5 cm in width x 1 cm in height with a depth of 0.75 cm. The wound bed is well-granulated, pink, and moist with no oozing or obvious signs of infection. In the middle of her sternum, just below the breast line, has a larger area of dehiscence measuring 2.75 cm x 2.5 cm with a depth of 1.5 cm with no tunneling above or below the dehiscence. Wound bed is well granulated and dry with no oozing. There is some erythema around the wound bed. PAST MEDICAL HISTORY: End-stage renal disease, on dialysis; coronary artery disease, status post CAB; chronic nausea and vomiting; high blood pressure; type 2 diabetes mellitus; recent CVA; chronic depression; multiple sclerosis; and chronic pain syndrome. PAST SURGICAL HISTORY: Coronary artery bypass grafting last month as mentioned above. FAMILY HISTORY: Reviewed and noncontributory. SOCIAL HISTORY: No alcohol abuse, tobacco abuse, or use of illicit drugs. She does use chronic pain medications. ALLERGIES: APPARENTLY ALLERGIC TO RITALIN AND STADOL. Consultation Report [address] [place]. [address] NAME: BLU VAN : 70 STATUS : DIS IN PAT#: [id number] AGE: 47 ADM/REG DATE : 05/20/17 MR#: [id number] REPORT SERV DATE: 05/21/17 DICTATED BY: DOROTA REID DATE: 05/21/17 REPORT STATUS : Draft TRANSCRIBED BY: MERI DATE: 05/21/17 HOME MEDICATIONS: DuoNeb inhaler twice a day, Xanax 0.5 mg p.o. twice a day as needed, amiodarone 200 mg p.o. twice a day, aspirin 81 mg p.o. daily, Lipitor 80 mg p.o. at bedtime, Coreg 25 mg p.o. twice a day, Neurontin 600 mg p.o. twice a day, vitamin C one tablet p.o. daily, zinc one tablet p.o. daily, magnesium one tablet p.o. daily, lisinopril 10 mg p.o. daily, Keppra 500 mg p.o. twice a day, Levemir 12 units subcutaneously twice a day, NovoLog per sliding scale, Clarence 7.5 mg/325 one tablet three times a day as needed, and Effexor 150 mg p.o. daily. REVIEW OF SYSTEMS: A 10-point review of systems is obtained and is negative other than HPI. PHYSICAL EXAMINATION: VITAL SIGNS: From today; temperature 98.8, heart rate 98, blood pressure 133/63, respiratory rate 16, and O2 saturation 97% on room air. GENERAL: Obese female, ill appearing for her age. PSYCH: Very flat affect. Talkative. NEURO: Alert and oriented x3. Pupils are equal, round, reactive to light and accommodation. She exhibits equal strength in bilateral upper extremities and bilateral lower extremities. LUNGS: Clear to auscultation bilaterally with normal effort. CARDIAC: S1 and S2 with no murmurs, rubs, or gallops. SKIN AND INCISIONS: Skin dry overall with no obvious signs of skin breakdown. Sternal incision as mentioned above. Lower extremity incision seemed to be healing well. ABDOMEN: Soft, obese, and nontender with active bowel sounds. EXTREMITIES: Free of cyanosis, clubbing, or edema. LABORATORY DATA: White blood cell count 16.4, hemoglobin 7.9, hematocrit 25, and platelets 240. Sodium 137, potassium 5.9, chloride 101, BUN 85, creatinine is 7.55, and glucose 140. ASSESSMENT AND PLAN: This is a 47-year-old female with history of end-stage renal disease, type 2 diabetes mellitus, and coronary artery disease who underwent urgent coronary artery bypass grafting on 04/08/2017. She was discharged to rehab facility on 04/28/2017 and I have not heard from her since this time. She presented to the hospital yesterday with complaints of oozing from her sternal wounds. She says that this has been going on for several days, but has just recently decided to seek medical evaluation. In the emergency room, her white blood cell count was elevated at 20 with normal procalcitonin. She has been afebrile, but evaluation of her sternal wounds does appear that she has a superficial infection of her sternal incision. I would continue the IV vancomycin for now as her wound cultures are currently pending showing growth of what appears to be a Staph, would await those cultures to determine the course of antibiotic treatment moving forward. I would continue wet-to-dry dressing changes for now and ask Wound Team to evaluate her for VAC dressing. VAC dressing can be placed tomorrow and she can be started on an appropriate antibiotic regimen that she could be discharged home. I am concerned, however, that she has poor motivation in self-care and would likely not do well with daily dressing changes or Consultation Report [facility] [address] [place]. [address] NAME: BLU VAN : 70 STATUS : DIS IN PAT#: [id number] AGE: 47 ADM/REG DATE : 05/20/17 MR#: [id number] REPORT SERV DATE: 05/21/17 DICTATED BY: DOROTA REID DATE: 05/21/17 REPORT STATUS : Draft TRANSCRIBED BY: MERI DATE: 05/21/17 Wound Care, will likely need home health. We will continue to follow. Thank you for letting us know of her admission. MORALES/MERI Dorota Reid NP / [id number] CC: Lennox Curry M.D.
[2017-05-19 18:43] LABS: BASOPHILS 0.2 %; BASOPHILS ABSOLUTE 0.04 10/3/uL (0.0-0.16); EOSINOPHILS 0.3 %; EOSINOPHILS ABSOLUTE 0.07 10/3/uL (0.0-0.53); ER CBC TAT 0 Hrs 07 Mins; HEMATOCRIT 28.3 % (36.0-48.0); HEMOGLOBIN 8.7 g/dL (12.0-16.0); IMMATURE GRANULOCYTES 0.5 %; IMMATURE GRANULOCYTES ABSOLUTE 0.11 10/3/uL (0.0-0.11); LYMPHOCYTES 8.3 %; LYMPHOCYTES ABSOLUTE 1.71 10/3/uL (0.67-4.30); MANUAL DIFF NO %; MEAN CORPUS HGB CONC 30.7 g/dL (32.0-36.0); MEAN CORPUSCULAR HEMOGLOB 32.6 pg (26.0-34.0); MEAN PLATELET VOLUME 10.4 fL (9.2-13.0); MONOCYTES 4.3 %; MONOCYTES ABSOLUTE 0.89 10/3/uL (0.21-1.20); NEUTROPHILS 86.4 %; NEUTROPHILS ABSOLUTE 17.79 10/3/uL (2.02-8.40); PLATELET COUNT 259 10/3/uL (150-400); RBC DISTRIBUTION WIDTH 16.1 % (12.0-16.0); RED CELL COUNT 2.67 10/6/uL (4.0-5.6); WHITE BLOOD CELLS 20.6 10/3/uL (4.5-10.5)
[2017-05-19 18:52] LABS: INTERNATIONAL NORMAL RATI 1.3 UNITS (-); PARTIAL THROMBO TIME 27.5 SEC (22.5-37.2); PROTIME (NOT ORD) 15.7 SEC (12.0-14.5)
[2017-05-19 19:02] LABS: CALCIUM, SERUM 8.7 MG/DL (8.5-10.4); CHLORIDE, SERUM 98 MMOL/L (96-112); GFR AFRICAN AMERICAN 8 ML/MIN (>=60); GFR NON AFRICAN AMERICAN 7 ML/MIN (>=60); GLUCOSE, SERUM 167 MG/DL (60-99); SODIUM, SERUM 133 MMOL/L (135-148); TROPONIN I 0.02 NG/ML (<0.05)
[2017-05-19 19:05] LABS: BUN (BLOOD UREA NITROGEN) 67 MG/DL (6-23); CHEST PAIN PROFILE TAT 0 Hrs 19 Mins; CO2 (CARBON DIOXIDE) 27 MMOL/L (24-34); CREATININE 6.66 MG/DL (0.55-1.02); POTASSIUM, SERUM 6.2 MMOL/L (3.5-5.3)
[~2017-05-19 19:52] MED LIST changes: +ASABAYER PO; +LIPITOR80 MG PO
[2017-05-19 22:05] LABS: ALBUMIN 3.8 G/DL (3.5-5.0); SGOT(AST) 14 U/L (5-40); SGPT(ALT) 26 U/L (5-65); TOTAL BILIRUBIN 0.3 MG/DL (0-1.2); TOTAL PROTEIN 7.4 G/DL (6.0-8.5)
[2017-05-19 22:06] LABS: ALKALINE PHOSPHATASE 137 U/L (45-117); DIRECT BILIRUBIN < 0.1 MG/DL (0.0-0.4); INDIRECT BILIRUBIN(NOT ORDER) 0.2 MG/DL (0.1-0.9)
[2017-05-19 22:21] LABS: PROCALCITONIN 0.44 ng/mL (<0.5)
[2017-05-20] MEDS ORDERED: UNABLE TO RECALL (01:57)
[2017-05-20] MEDS ORDERED: PRIN10 PO (12:09)
[2017-05-20] MEDS ORDERED: X5 PO (12:10)
[2017-05-20] MEDS ORDERED: LEVEMFLXPN SC (12:10)
[2017-05-20] MEDS ORDERED: COREG25 PO (12:10)
[2017-05-20] MEDS ORDERED: CORDARONE PO (12:10)
[2017-05-20] MEDS ORDERED: DUONEB INH (12:10)
[2017-05-20] MEDS ORDERED: LIPITOR80 MG PO (12:10)
[2017-05-20] MEDS ORDERED: EFFEXOR XR150 MG PO (12:11)
[2017-05-20] MEDS ORDERED: NEUR600 PO (12:11)
[2017-05-20] MEDS ORDERED: NOVOLOG SC (12:11)
[2017-05-20] MEDS ORDERED: KEPPRA500 PO (12:11)
[2017-05-20] MEDS ORDERED: ZINC TAB PO (12:12)
[2017-05-20] MEDS ORDERED: ASAB PO (12:12)
[2017-05-20] MEDS ORDERED: MAGNESIUM PO (12:12)
[2017-05-20] MEDS ORDERED: VITAMIN C PO (12:12)
[2017-05-20] MEDS ORDERED: BLOOD THINNER (12:13)
[2017-05-20] MEDS ORDERED: NORCO1 TA2 PO (12:14)
[2017-05-20 15:18] LABS: BASOPHILS 0.2 %; BASOPHILS ABSOLUTE 0.04 10/3/uL (0.0-0.16); EOSINOPHILS 3.4 %; EOSINOPHILS ABSOLUTE 0.56 10/3/uL (0.0-0.53); HEMOGLOBIN 7.9 g/dL (12.0-16.0); IMMATURE GRANULOCYTES 0.4 %; IMMATURE GRANULOCYTES ABSOLUTE 0.07 10/3/uL (0.0-0.11); LYMPHOCYTES 16.4 %; LYMPHOCYTES ABSOLUTE 2.69 10/3/uL (0.67-4.30); MEAN CORPUS HGB CONC 31.5 g/dL (32.0-36.0); MEAN CORPUSCULAR HEMOGLOB 32.4 pg (26.0-34.0); MEAN CORPUSCULAR VOLUME 102.9 fL (80-100); MEAN PLATELET VOLUME 10.4 fL (9.2-13.0); MONOCYTES 5.9 %; MONOCYTES ABSOLUTE 0.97 10/3/uL (0.21-1.20); NEUTROPHILS 73.7 %; PLATELET COUNT 240 10/3/uL (150-400); RBC DISTRIBUTION WIDTH 16.2 % (12.0-16.0); RED CELL COUNT 2.44 10/6/uL (4.0-5.6); WHITE BLOOD CELLS 16.4 10/3/uL (4.5-10.5)
[2017-05-20 15:19] LABS: HEMATOCRIT 25.1 % (36.0-48.0); MANUAL DIFF NO %
[2017-05-20 15:30] LABS: CALCIUM, SERUM 8.1 MG/DL (8.5-10.4); CHLORIDE, SERUM 101 MMOL/L (96-112); CO2 (CARBON DIOXIDE) 25 MMOL/L (24-34); GLUCOSE, SERUM 140 MG/DL (60-99); PHOSPHORUS, SERUM 4.1 MG/DL (2.5-4.5); POTASSIUM, SERUM 5.9 MMOL/L (3.5-5.3); SODIUM, SERUM 137 MMOL/L (135-148)
[2017-05-20 15:31] LABS: BUN (BLOOD UREA NITROGEN) 85 MG/DL (6-23); CREATININE 7.55 MG/DL (0.55-1.02); GFR AFRICAN AMERICAN 7 ML/MIN (>=60); GFR NON AFRICAN AMERICAN 6 ML/MIN (>=60)
[2017-05-21] MEDS ORDERED: ELIQUIS 2.5 MG2.5 MG PO (09:39)
[2017-05-22 08:34] LABS: BASOPHILS 0.2 %; BASOPHILS ABSOLUTE 0.02 10/3/uL (0.0-0.16); EOSINOPHILS 4.8 %; EOSINOPHILS ABSOLUTE 0.51 10/3/uL (0.0-0.53); HEMATOCRIT 24.3 % (36.0-48.0); HEMOGLOBIN 7.6 g/dL (12.0-16.0); IMMATURE GRANULOCYTES 0.2 %; IMMATURE GRANULOCYTES ABSOLUTE 0.02 10/3/uL (0.0-0.11); LYMPHOCYTES 17.9 %; LYMPHOCYTES ABSOLUTE 1.91 10/3/uL (0.67-4.30); MANUAL DIFF NO %; MEAN CORPUS HGB CONC 31.3 g/dL (32.0-36.0); MEAN CORPUSCULAR HEMOGLOB 32.3 pg (26.0-34.0); MEAN CORPUSCULAR VOLUME 103.4 fL (80-100); MEAN PLATELET VOLUME 9.9 fL (9.2-13.0); MONOCYTES 4.7 %; NEUTROPHILS 72.2 %; NEUTROPHILS ABSOLUTE 7.69 10/3/uL (2.02-8.40); PLATELET COUNT 196 10/3/uL (150-400); RBC DISTRIBUTION WIDTH 16.5 % (12.0-16.0); RED CELL COUNT 2.35 10/6/uL (4.0-5.6); WHITE BLOOD CELLS 10.7 10/3/uL (4.5-10.5)
[2017-05-22 08:53] LABS: ALBUMIN 2.7 G/DL (3.5-5.0); CHLORIDE, SERUM 104 MMOL/L (96-112); CO2 (CARBON DIOXIDE) 27 MMOL/L (24-34); GFR AFRICAN AMERICAN 8 ML/MIN (>=60); GFR NON AFRICAN AMERICAN 7 ML/MIN (>=60); GLUCOSE, SERUM 144 MG/DL (60-99); PHOSPHORUS, SERUM 4.9 MG/DL (2.5-4.5); POTASSIUM, SERUM 5.6 MMOL/L (3.5-5.3); SODIUM, SERUM 140 MMOL/L (135-148)
[2017-05-22 08:54] LABS: BUN (BLOOD UREA NITROGEN) 61 MG/DL (6-23); CREATININE 6.79 MG/DL (0.55-1.02)
[2017-05-24 16:36] LABS: BASOPHILS 0.3 %; BASOPHILS ABSOLUTE 0.03 10/3/uL (0.0-0.16); EOSINOPHILS 4.8 %; EOSINOPHILS ABSOLUTE 0.43 10/3/uL (0.0-0.53); HEMATOCRIT 25.3 % (36.0-48.0); HEMOGLOBIN 7.9 g/dL (12.0-16.0); IMMATURE GRANULOCYTES 0.2 %; IMMATURE GRANULOCYTES ABSOLUTE 0.02 10/3/uL (0.0-0.11); LYMPHOCYTES 18.5 %; LYMPHOCYTES ABSOLUTE 1.64 10/3/uL (0.67-4.30); MEAN CORPUS HGB CONC 31.2 g/dL (32.0-36.0); MEAN CORPUSCULAR HEMOGLOB 31.9 pg (26.0-34.0); MONOCYTES 5.3 %; MONOCYTES ABSOLUTE 0.47 10/3/uL (0.21-1.20); NEUTROPHILS 70.9 %; NEUTROPHILS ABSOLUTE 6.28 10/3/uL (2.02-8.40); PLATELET COUNT 191 10/3/uL (150-400); RBC DISTRIBUTION WIDTH 16.2 % (12.0-16.0); RED CELL COUNT 2.48 10/6/uL (4.0-5.6); WHITE BLOOD CELLS 8.9 10/3/uL (4.5-10.5)
[2017-05-24 16:39] LABS: MANUAL DIFF NO %
[2017-05-24 16:42] LABS: BUN (BLOOD UREA NITROGEN) 59 MG/DL (6-23); CALCIUM, SERUM 8.4 MG/DL (8.5-10.4); CHLORIDE, SERUM 104 MMOL/L (96-112); CO2 (CARBON DIOXIDE) 26 MMOL/L (24-34); CREATININE 7.49 MG/DL (0.55-1.02); GFR AFRICAN AMERICAN 7 ML/MIN (>=60); GFR NON AFRICAN AMERICAN 6 ML/MIN (>=60); GLUCOSE, SERUM 90 MG/DL (60-99); PHOSPHORUS, SERUM 5.5 MG/DL (2.5-4.5); POTASSIUM, SERUM 6.5 MMOL/L (3.5-5.3); SODIUM, SERUM 137 MMOL/L (135-148)
[2017-05-25] MEDS ORDERED: LEVAQUIN5T PO (12:33)
[2017-06-03] MEDS ORDERED: SUPER B COMP PO (19:41)
[2017-06-03] MEDS ORDERED: PR25 PO (20:03)
== END 2017-05-25 13:59 | disposition home or self-care (01) | DRG 919 ==
LOC: ER 19:52 → 4SO 05-20 00:02
PROVIDERS: Emergency Medicine; Internal Medicine Nephrology; Registered Nurse
DX: T81.31XA Disruption of external operation (surgical) wound, not elsewhere classified, initial encounter (principal); N18.6 End stage renal disease; I13.2 Hypertensive heart and chronic kidney disease with heart failure and with stage 5 chronic kidney disease, or end stage renal disease; E11.22 Type 2 diabetes mellitus with diabetic chronic kidney disease; I50.32 Chronic diastolic (congestive) heart failure; G35 Multiple sclerosis; F32.9 Major depressive disorder, single episode, unspecified; Y83.2 Surgical operation with anastomosis, bypass or graft as the cause of abnormal reaction of the patient, or of later complication, without mention of misadventure at the time of the procedure; M77.31 Calcaneal spur, right foot; E87.5 Hyperkalemia; G89.29 Other chronic pain; I25.2 Old myocardial infarction; Z99.2 Dependence on renal dialysis; W18.30XA Fall on same level, unspecified, initial encounter; Z86.73 Personal history of transient ischemic attack (TIA), and cerebral infarction without residual deficits; Z88.5 Allergy status to narcotic agent; Z88.8 Allergy status to other drugs, medicaments and biological substances
CPT/HCPCS: 70450; 71010; 72100; 73560-RT; 73610-LT; 73610-RT; 73700-RT; 80048; 80069; 80076; 80202; 82962; 83605; 83735; 83880; 84132; 84145; 84484; 85025; 85610; 85730; 87040; 87070; 87077; 87186; 87205; 93005; 94640; 96365; 96375; 97161-GP; 97165-GO; 99285; A9270-GY; G0257; J0360; J0610; J1170; J1885; J1956; J2405; J2550; J3370